=== PATIENT | male | born 1955 | race Caucasian/White ===

== ENCOUNTER 2020-07-23 08:49 | Inpatient (IN) | payer BC ==
[2020-07-23] MEDS ORDERED: Sodium Chloride 0.9% 10 ML Syringe FLUSH PRN (10:12)
[2020-07-23] MEDS ORDERED: Ondansetron 4 MG/2 ML SDV IVPUSH ONE (10:12)
[2020-07-23] MEDS ORDERED: Sodium Chloride 0.9% 500 ML IV ONE (10:12)
[2020-07-23] MEDS ORDERED: Acetaminophen 325 MG Tab PO PRN (11:47)
[2020-07-23] MEDS: Sodium Chloride 0.9% 1,000 ML IV SCH ×2 (12:15→20:15)
--- NOTE | 2020-07-23 12:16 | CR ---
DATE OF SERVICE: 07/23/2020 CLINICAL DATA: Shortness of breath AP chest: Comparison is made to a prior exam dated 29 August 2007. The patient has taken a poor inspiration. Heart size is normal. The aorta is ectatic. There is a subtle ground-glass opacity in the right mid lung and right suprahilar region. Viral pneumonia should be considered. The lungs are otherwise clear. No pneumothorax. No pleural effusions. MTDD
--- NOTE | 2020-07-23 12:45 | PCM.PN ---
- General Info Date of Service: 07/23/20 Functional Status: Reports: Pain Controlled Pain Score: 0 - Review of Systems General: Reports: No Symptoms HEENT: Reports: No Symptoms Pulmonary: Reports: No Symptoms Cardiovascular: Reports: No Symptoms Gastrointestinal: Reports: Decreased Appetite, Diarrhea, Nausea, Vomiting Genitourinary: Reports: No Symptoms Musculoskeletal: Reports: No Symptoms Skin: Reports: No Symptoms Neurological: Reports: No Symptoms Psychiatric: Reports: No Symptoms - Patient Data Vitals - Most Recent: Last Vital Signs Temp 98 F 07/23/20 09:45 Pulse 92 07/23/20 10:39 Resp 18 07/23/20 10:39 BP 109/79 07/23/20 10:39 Pulse Ox 98 07/23/20 10:39 Weight - Most Recent: 220 lb Lab Results Last 24 Hours: Laboratory Results - last 24 hr 07/23/20 07/23/20 07/23/20 Range/Units 10:12 10:12 10:12 WBC 3.6 L (4.0-11.0) K/uL RBC 5.47 (4.50-6.50) M/uL Hgb 16.2 (13.0-18.0) g/dL Hct 46.6 (40.0-54.0) % MCV 85 (76-96) fL MCH 29.6 (27.0-32.0) pg MCHC 34.8 (31.0-35.0) g/dL RDW 12.7 (11.0-16.0) % Plt Count 150 (150-400) K/uL MPV 10.7 H (6.0-10.0) fL Neut % (Auto) 75.2 H (45.0-70.0) % Lymph % (Auto) 11.3 L (20.0-40.0) % [place] % (Auto) 13.5 H (3.0-10.0) % Eos % (Auto) 0.0 L (1.0-5.0) % Baso % (Auto) 0.0 (0.0-0.5) % Neut # (Auto) 2.74 (2.00-7.50) K/uL Lymph # (Auto) 0.41 L (1.50-4.00) K/uL [place] # (Auto) 0.49 (0.20-0.80) K/uL Eos # (Auto) 0.00 L (0.04-0.40) K/uL Baso # (Auto) 0.00 L (0.02-0.10) K/uL D-Dimer, Quantitative 663 H (0-400) ng/mL Sodium 134 L (136-145) mmol/L Potassium 4.0 (3.5-5.1) mmol/L Chloride 98 (98-107) mmol/L Carbon Dioxide 25.4 (21.0-32.0) mmol/L Anion Gap 14.6 (5.0-15.0) mmol/L BUN 48 H (8-26) mg/dL Creatinine 1.64 H (0.70-1.30) mg/dL Est Cr Clr Drug Dosing 42.87 mL/min Estimated GFR (MDRD) 42 L (>60) MLS/MIN BUN/Creatinine Ratio 29.3 H (6-25) Glucose 143 H (74-100) mg/dL Lactic Acid (0.4-2.0) mmol/L Calcium 8.2 L (8.5-10.1) mg/dL Total Bilirubin 0.7 (0.0-1.0) mg/dL AST 29 (15-37) U/L ALT 36 (12-78) U/L Alkaline Phosphatase 68 (46-116) U/L Troponin I < 0.017 (0.000-0.060) ng/mL C-Reactive Protein 19.8 H (0.0-3.0) mg/L Total Protein 7.1 (6.4-8.2) g/dL Albumin 3.2 L (3.4-5.0) g/dL Globulin 3.9 (2.2-4.2) g/dL Albumin/Globulin Ratio 0.8 (0.8-2.0) 07/23/20 07/23/20 Range/Units 10:12 11:12 WBC (4.0-11.0) K/uL RBC (4.50-6.50) M/uL Hgb (13.0-18.0) g/dL Hct (40.0-54.0) % MCV (76-96) fL MCH (27.0-32.0) pg MCHC (31.0-35.0) g/dL RDW (11.0-16.0) % Plt Count (150-400) K/uL MPV (6.0-10.0) fL Neut % (Auto) (45.0-70.0) % Lymph % (Auto) (20.0-40.0) % [place] % (Auto) (3.0-10.0) % Eos % (Auto) (1.0-5.0) % Baso % (Auto) (0.0-0.5) % Neut # (Auto) (2.00-7.50) K/uL Lymph # (Auto) (1.50-4.00) K/uL [place] # (Auto) (0.20-0.80) K/uL Eos # (Auto) (0.04-0.40) K/uL Baso # (Auto) (0.02-0.10) K/uL D-Dimer, Quantitative (0-400) ng/mL Sodium (136-145) mmol/L Potassium (3.5-5.1) mmol/L Chloride (98-107) mmol/L Carbon Dioxide (21.0-32.0) mmol/L Anion Gap (5.0-15.0) mmol/L BUN (8-26) mg/dL Creatinine (0.70-1.30) mg/dL Est Cr Clr Drug Dosing mL/min Estimated GFR (MDRD) (>60) MLS/MIN BUN/Creatinine Ratio (6-25) Glucose (74-100) mg/dL Lactic Acid 2.2 H 2.0 (0.4-2.0) mmol/L Calcium (8.5-10.1) mg/dL Total Bilirubin (0.0-1.0) mg/dL AST (15-37) U/L ALT (12-78) U/L Alkaline Phosphatase (46-116) U/L Troponin I (0.000-0.060) ng/mL C-Reactive Protein (0.0-3.0) mg/L Total Protein (6.4-8.2) g/dL Albumin (3.4-5.0) g/dL Globulin (2.2-4.2) g/dL Albumin/Globulin Ratio (0.8-2.0) Med Orders - Current: Current Medications Acetaminophen (Tylenol) 650 mg PO Q4H PRN PRN Reason: analgesia/fever Heparin Sodium (Porcine) (Heparin Sodium) 5,000 units SUBCUT Q12HR ROBIN Sodium Chloride (Saline Flush) 10 ml FLUSH ASDIRECTED PRN PRN Reason: Keep Vein Open Last Admin: 07/23/20 10:16 Dose: 10 ml Documented by: Discontinued Medications Sodium Chloride (Normal Saline) 500 mls @ 500 mls/hr IV .BOLUS ONE Stop: 07/23/20 11:11 Last Admin: 07/23/20 10:15 Dose: 500 mls/hr Documented by: Ondansetron HCl (Zofran) 8 mg IVPUSH ONETIME ONE Stop: 07/23/20 10:13 Last Admin: 07/23/20 10:17 Dose: 8 mg Documented by: Sepsis Event Note - Evaluation Sepsis Screening Result: No Definite Risk - Focused Exam Vital Signs: Vital Signs Temp Pulse Resp BP Pulse Ox 07/23/20 10:39 92 18 109/79 98 07/23/20 09:45 98 F 105 H 18 140/83 98 - Problem List Review Problem List Initiated/Reviewed/Updated: Yes - My Orders Last 24 Hours: My Active Orders 07/23/20 10:12 Sodium Chloride 0.9% [Saline Flush] 10 ml FLUSH ASDIRECTED PRN Peripheral IV Insertion Adult [OM.PC] Routine 07/23/20 10:13 EKG Documentation Completion [RC] ASDIRECTED 07/23/20 Lunch Clear Liquid Diet [DIET] 07/23/20 11:47 Patient Status [ADT] Routine Oxygen Therapy [RC] PRN Up With Assistance [RC] ASDIRECTED Vital Signs [RC] Q4H Acetaminophen [TylenoL] 650 mg PO Q4H PRN 07/23/20 20:00 Heparin Sodium 5,000 units SUBCUT Q12HR - Plan Plan:: Spoke with ehospitalist Dr. Escobar, he suggests 5000units sc heparin BID. Patient is resting, nausea controlled at this time. Patient will start clear liquid diet for lunch, if tolerated with no nausea, he will start lowfat diet for supper. Continues to deny any pain, SOB, nausea at this time.
[2020-07-23] MEDS ORDERED: Ondansetron 4 MG/2 ML SDV IVPUSH PRN (15:05)
[2020-07-23] MEDS ORDERED: Heparin Sodium 5,000 Units/ML Vial ONE (19:30)
[2020-07-23] MEDS: Heparin Sodium 5,000 UNITS/0.5 ML Syringe SUBCUT SCH (19:56)
[2020-07-24] MEDS ORDERED: Heparin Sodium 5,000 Units/ML Vial ONE (07:41)
[2020-07-24] MEDS: Heparin Sodium 5,000 UNITS/0.5 ML Syringe SUBCUT SCH (08:31)
--- NOTE | 2020-07-24 11:26 | PCM.PN ---
- General Info Date of Service: 07/24/20 Functional Status: Reports: Pain Controlled, Ambulating, Urinating - Review of Systems General: Reports: Weakness, Fatigue HEENT: Reports: No Symptoms Pulmonary: Reports: No Symptoms, Cough Cardiovascular: Reports: No Symptoms, Orthopnea Gastrointestinal: Reports: Diarrhea, Nausea (nausea is resolved) Genitourinary: Reports: No Symptoms Musculoskeletal: Reports: No Symptoms Skin: Reports: No Symptoms Neurological: Reports: No Symptoms Psychiatric: Reports: No Symptoms - Patient Data Vitals - Most Recent: Last Vital Signs Temp 98.7 F 07/24/20 08:00 Pulse 103 H 07/24/20 08:00 Resp 18 07/24/20 08:00 BP 100/68 07/24/20 08:00 Pulse Ox 95 07/24/20 08:00 Weight - Most Recent: 220 lb Lab Results Last 24 Hours: Laboratory Results - last 24 hr 07/23/20 07/23/20 07/24/20 Range/Units 10:12 11:12 09:58 WBC 3.3 L (4.0-11.0) K/uL RBC 4.91 (4.50-6.50) M/uL Hgb 14.5 (13.0-18.0) g/dL Hct 43.5 (40.0-54.0) % MCV 89 (76-96) fL MCH 29.5 (27.0-32.0) pg MCHC 33.3 (31.0-35.0) g/dL RDW 13.0 (11.0-16.0) % Plt Count 151 (150-400) K/uL MPV 10.6 H (6.0-10.0) fL Neut % (Auto) 78.9 H (45.0-70.0) % Lymph % (Auto) 10.1 L (20.0-40.0) % [place] % (Auto) 11.0 H (3.0-10.0) % Eos % (Auto) 0.0 L (1.0-5.0) % Baso % (Auto) 0.0 (0.0-0.5) % Neut # (Auto) 2.57 (2.00-7.50) K/uL Lymph # (Auto) 0.33 L (1.50-4.00) K/uL [place] # (Auto) 0.36 (0.20-0.80) K/uL Eos # (Auto) 0.00 L (0.04-0.40) K/uL Baso # (Auto) 0.00 L (0.02-0.10) K/uL D-Dimer, Quantitative 663 H (0-400) ng/mL Sodium (136-145) mmol/L Potassium (3.5-5.1) mmol/L Chloride (98-107) mmol/L Carbon Dioxide (21.0-32.0) mmol/L Anion Gap (5.0-15.0) mmol/L BUN (8-26) mg/dL Creatinine (0.70-1.30) mg/dL Est Cr Clr Drug Dosing mL/min Estimated GFR (MDRD) (>60) MLS/MIN BUN/Creatinine Ratio (6-25) Glucose (74-100) mg/dL Lactic Acid 2.0 (0.4-2.0) mmol/L Calcium (8.5-10.1) mg/dL Total Bilirubin (0.0-1.0) mg/dL AST (15-37) U/L ALT (12-78) U/L Alkaline Phosphatase (46-116) U/L Total Protein (6.4-8.2) g/dL Albumin (3.4-5.0) g/dL Globulin (2.2-4.2) g/dL Albumin/Globulin Ratio (0.8-2.0) 07/24/20 Range/Units 09:58 WBC (4.0-11.0) K/uL RBC (4.50-6.50) M/uL Hgb (13.0-18.0) g/dL Hct (40.0-54.0) % MCV (76-96) fL MCH (27.0-32.0) pg MCHC (31.0-35.0) g/dL RDW (11.0-16.0) % Plt Count (150-400) K/uL MPV (6.0-10.0) fL Neut % (Auto) (45.0-70.0) % Lymph % (Auto) (20.0-40.0) % [place] % (Auto) (3.0-10.0) % Eos % (Auto) (1.0-5.0) % Baso % (Auto) (0.0-0.5) % Neut # (Auto) (2.00-7.50) K/uL Lymph # (Auto) (1.50-4.00) K/uL [place] # (Auto) (0.20-0.80) K/uL Eos # (Auto) (0.04-0.40) K/uL Baso # (Auto) (0.02-0.10) K/uL D-Dimer, Quantitative (0-400) ng/mL Sodium 139 (136-145) mmol/L Potassium 3.9 (3.5-5.1) mmol/L Chloride 103 (98-107) mmol/L Carbon Dioxide 27.0 (21.0-32.0) mmol/L Anion Gap 12.9 (5.0-15.0) mmol/L BUN 25 D (8-26) mg/dL Creatinine 1.36 H (0.70-1.30) mg/dL Est Cr Clr Drug Dosing 51.69 mL/min Estimated GFR (MDRD) 52 L (>60) MLS/MIN BUN/Creatinine Ratio 18.4 (6-25) Glucose 139 H (74-100) mg/dL Lactic Acid (0.4-2.0) mmol/L Calcium 7.7 L (8.5-10.1) mg/dL Total Bilirubin 0.6 (0.0-1.0) mg/dL AST 32 (15-37) U/L ALT 39 (12-78) U/L Alkaline Phosphatase 61 (46-116) U/L Total Protein 6.5 (6.4-8.2) g/dL Albumin 2.8 L (3.4-5.0) g/dL Globulin 3.7 (2.2-4.2) g/dL Albumin/Globulin Ratio 0.8 (0.8-2.0) Med Orders - Current: Current Medications Acetaminophen (Tylenol) 650 mg PO Q4H PRN PRN Reason: analgesia/fever Heparin Sodium (Porcine) (Heparin Sodium) 5,000 units SUBCUT Q12HR ROBIN Last Admin: 07/24/20 08:31 Dose: 5,000 units Documented by: Sodium Chloride (Normal Saline) 1,000 mls @ 125 mls/hr IV ASDIRECTED ROBIN Last Infusion: 07/24/20 03:00 Dose: 75 mls/hr Documented by: Ondansetron HCl (Zofran) 8 mg IVPUSH Q6H PRN PRN Reason: Nausea/Vomiting Last Admin: 07/23/20 17:22 Dose: 8 mg Documented by: Sodium Chloride (Saline Flush) 10 ml FLUSH ASDIRECTED PRN PRN Reason: Keep Vein Open Last Admin: 07/23/20 10:16 Dose: 10 ml Documented by: Discontinued Medications Heparin Sodium (Porcine) (Heparin Sodium) Confirm Administered Dose 5,000 units .ROUTE .STK-MED ONE Stop: 07/23/20 19:31 Last Admin: 07/23/20 19:56 Dose: Not Given Documented by: Heparin Sodium (Porcine) (Heparin Sodium) Confirm Administered Dose 5,000 units .ROUTE .STK-MED ONE Stop: 07/24/20 07:42 Last Admin: 07/24/20 08:01 Dose: Not Given Documented by: Sodium Chloride (Normal Saline) 500 mls @ 500 mls/hr IV .BOLUS ONE Stop: 07/23/20 11:11 Last Admin: 07/23/20 10:15 Dose: 500 mls/hr Documented by: Ondansetron HCl (Zofran) 8 mg IVPUSH ONETIME ONE Stop: 07/23/20 10:13 Last Admin: 07/23/20 10:17 Dose: 8 mg Documented by: - Patient Data Lab Results Last 24 hrs: Laboratory Results - last 24 hr 07/23/20 07/23/20 07/24/20 Range/Units 10:12 11:12 09:58 WBC 3.3 L (4.0-11.0) K/uL RBC 4.91 (4.50-6.50) M/uL Hgb 14.5 (13.0-18.0) g/dL Hct 43.5 (40.0-54.0) % MCV 89 (76-96) fL MCH 29.5 (27.0-32.0) pg MCHC 33.3 (31.0-35.0) g/dL RDW 13.0 (11.0-16.0) % Plt Count 151 (150-400) K/uL MPV 10.6 H (6.0-10.0) fL Neut % (Auto) 78.9 H (45.0-70.0) % Lymph % (Auto) 10.1 L (20.0-40.0) % [place] % (Auto) 11.0 H (3.0-10.0) % Eos % (Auto) 0.0 L (1.0-5.0) % Baso % (Auto) 0.0 (0.0-0.5) % Neut # (Auto) 2.57 (2.00-7.50) K/uL Lymph # (Auto) 0.33 L (1.50-4.00) K/uL [place] # (Auto) 0.36 (0.20-0.80) K/uL Eos # (Auto) 0.00 L (0.04-0.40) K/uL Baso # (Auto) 0.00 L (0.02-0.10) K/uL D-Dimer, Quantitative 663 H (0-400) ng/mL Sodium (136-145) mmol/L Potassium (3.5-5.1) mmol/L Chloride (98-107) mmol/L Carbon Dioxide (21.0-32.0) mmol/L Anion Gap (5.0-15.0) mmol/L BUN (8-26) mg/dL Creatinine (0.70-1.30) mg/dL Est Cr Clr Drug Dosing mL/min Estimated GFR (MDRD) (>60) MLS/MIN BUN/Creatinine Ratio (6-25) Glucose (74-100) mg/dL Lactic Acid 2.0 (0.4-2.0) mmol/L Calcium (8.5-10.1) mg/dL Total Bilirubin (0.0-1.0) mg/dL AST (15-37) U/L ALT (12-78) U/L Alkaline Phosphatase (46-116) U/L Total Protein (6.4-8.2) g/dL Albumin (3.4-5.0) g/dL Globulin (2.2-4.2) g/dL Albumin/Globulin Ratio (0.8-2.0) 07/24/20 Range/Units 09:58 WBC (4.0-11.0) K/uL RBC (4.50-6.50) M/uL Hgb (13.0-18.0) g/dL Hct (40.0-54.0) % MCV (76-96) fL MCH (27.0-32.0) pg MCHC (31.0-35.0) g/dL RDW (11.0-16.0) % Plt Count (150-400) K/uL MPV (6.0-10.0) fL Neut % (Auto) (45.0-70.0) % Lymph % (Auto) (20.0-40.0) % [place] % (Auto) (3.0-10.0) % Eos % (Auto) (1.0-5.0) % Baso % (Auto) (0.0-0.5) % Neut # (Auto) (2.00-7.50) K/uL Lymph # (Auto) (1.50-4.00) K/uL [place] # (Auto) (0.20-0.80) K/uL Eos # (Auto) (0.04-0.40) K/uL Baso # (Auto) (0.02-0.10) K/uL D-Dimer, Quantitative (0-400) ng/mL Sodium 139 (136-145) mmol/L Potassium 3.9 (3.5-5.1) mmol/L Chloride 103 (98-107) mmol/L Carbon Dioxide 27.0 (21.0-32.0) mmol/L Anion Gap 12.9 (5.0-15.0) mmol/L BUN 25 D (8-26) mg/dL Creatinine 1.36 H (0.70-1.30) mg/dL Est Cr Clr Drug Dosing 51.69 mL/min Estimated GFR (MDRD) 52 L (>60) MLS/MIN BUN/Creatinine Ratio 18.4 (6-25) Glucose 139 H (74-100) mg/dL Lactic Acid (0.4-2.0) mmol/L Calcium 7.7 L (8.5-10.1) mg/dL Total Bilirubin 0.6 (0.0-1.0) mg/dL AST 32 (15-37) U/L ALT 39 (12-78) U/L Alkaline Phosphatase 61 (46-116) U/L Total Protein 6.5 (6.4-8.2) g/dL Albumin 2.8 L (3.4-5.0) g/dL Globulin 3.7 (2.2-4.2) g/dL Albumin/Globulin Ratio 0.8 (0.8-2.0) Result Diagrams: 07/24/20 09:58 07/24/20 09:58 Sepsis Event Note - Evaluation Sepsis Screening Result: No Definite Risk - Focused Exam Vital Signs: Vital Signs Temp Pulse Resp BP Pulse Ox 07/24/20 08:00 98.7 F 103 H 18 100/68 95 07/24/20 04:01 87 96 07/24/20 00:00 90 18 97 - Problem List Review Problem List Initiated/Reviewed/Updated: Yes - My Orders Last 24 Hours: My Active Orders 07/23/20 11:47 Patient Status [ADT] Routine Oxygen Therapy [RC] DAILY Up With Assistance [RC] ASDIRECTED Vital Signs [RC] Q4H Acetaminophen [TylenoL] 650 mg PO Q4H PRN 07/23/20 13:00 Sodium Chloride 0.9% [Normal Saline] 1,000 ml IV ASDIRECTED 07/23/20 14:04 CULTURE MRSA SURVEY [RM] Routine 07/23/20 14:23 Isolation [COMM] Routine 07/23/20 14:24 Resuscitation Status Routine 07/23/20 15:05 Ondansetron [Zofran] 8 mg IVPUSH Q6H PRN 07/23/20 20:00 Heparin Sodium 5,000 units SUBCUT Q12HR 07/24/20 Lunch Advance Diet Instructions [DIET] - Plan Plan:: Spoke with ehospitalist Dr. Escobar, he suggests 5000units sc heparin BID. Patient is resting, nausea controlled at this time. Patient will start clear liquid diet for lunch, if tolerated with no nausea, he will start lowfat diet for supper. Continues to deny any pain, SOB, nausea at this time. 07/24 1099 Patient resting in bed, was able to tolerate a piece of toast. Continues to have diarrhea, but denies any abdominal pain, nausea, CP, SOB, fever. Will advance his diet for lunch and see if he tolerates this. Patient would like to go home to his dog, we will reassess his appropriateness for DC if he tolerates PO challenge. RA o2 95%, lungs clear and equal bilaterally, regular rate and r hythm on exam.
--- NOTE | 2020-07-24 18:42 | EDM.PDOC ---
ED HPI GENERAL MEDICAL PROBLEM - General Chief Complaint: General Stated Complaint: WEAKNESS / COVID POSITIVE Time Seen by Provider: 07/23/20 09:45 Source of Information: Reports: Patient History Limitations: Reports: No Limitations - History of Present Illness INITIAL COMMENTS - FREE TEXT/NARRATIVE: 65 year old male known COVID positive presents to ED with N/V/D and weakness. Patient was diagnosed last week and has had diarrhea since. Unable to keep food/water down. Denies any fever, cough, CP, SOB. Improves with: Reports: None Worsens with: Reports: None - Related Data Allergies Allergy/AdvReac Type Severity Reaction Status Date / Time No Known Allergies Allergy Verified 07/23/20 09:44 Home Meds: Home Meds NK [No Known Home Meds] 07/23/20 [History] Past Medical History HEENT History: Reports: Hard of Hearing Social & Family History - Tobacco Use Tobacco Use Status *Q: Never Tobacco User - Caffeine Use Caffeine Use: Reports: Coffee - Recreational Drug Use Recreational Drug Use: No ED ROS GENERAL - Review of Systems Review Of Systems: See Below Constitutional: Reports: Weakness HEENT: Reports: No Symptoms Respiratory: Reports: No Symptoms Cardiovascular: Reports: No Symptoms Endocrine: Reports: No Symptoms GI/Abdominal: Reports: Diarrhea, Nausea, Vomiting : Reports: No Symptoms Musculoskeletal: Reports: No Symptoms Skin: Reports: No Symptoms Neurological: Reports: No Symptoms Psychiatric: Reports: No Symptoms Hematologic/Lymphatic: Reports: No Symptoms ED EXAM, GI/ABD - Physical Exam Exam: See Below Exam Limited By: No Limitations General Appearance: Alert, No Apparent Distress Eyes: Bilateral: Normal Appearance Ears: Normal External Exam Nose: Normal Inspection, Normal Mucosa, No Blood Throat/Mouth: Normal Inspection, Normal Lips, Normal Gums, Normal Oropharynx, Normal Voice, No Airway Compromise Head: Atraumatic Neck: Normal Inspection, Full Range of Motion Respiratory/Chest: No Respiratory Distress, Lungs Clear, Normal Breath Sounds, No Accessory Muscle Use Cardiovascular: Normal Peripheral Pulses, No Edema, No JVD, No Murmur, Tachycardia GI/Abdominal Exam: Normal Bowel Sounds, Soft, Non-Tender Back Exam: Normal Inspection, Full Range of Motion Extremities: Normal Inspection, Normal Range of Motion, Non-Tender, No Pedal Edema, Normal Capillary Refill Neurological: Alert, Oriented, Normal Cognition, Normal Gait, No Motor/Sensory Deficits Psychiatric: Normal Affect, Normal Mood Skin Exam: Warm, Dry, Intact Lymphatic: No Adenopathy Course - Vital Signs Last Recorded V/S: Last Vital Signs Temp 98.7 F 07/24/20 08:00 Pulse 93 07/24/20 12:00 Resp 16 07/24/20 12:00 BP 105/65 07/24/20 12:00 Pulse Ox 95 07/24/20 12:00 - Orders/Labs/Meds Labs: Laboratory Tests 07/23/20 07/23/20 07/23/20 Range/Units 10:12 10:12 10:12 WBC 3.6 L (4.0-11.0) K/uL RBC 5.47 (4.50-6.50) M/uL Hgb 16.2 (13.0-18.0) g/dL Hct 46.6 (40.0-54.0) % MCV 85 (76-96) fL MCH 29.6 (27.0-32.0) pg MCHC 34.8 (31.0-35.0) g/dL RDW 12.7 (11.0-16.0) % Plt Count 150 (150-400) K/uL MPV 10.7 H (6.0-10.0) fL Neut % (Auto) 75.2 H (45.0-70.0) % Lymph % (Auto) 11.3 L (20.0-40.0) % [place] % (Auto) 13.5 H (3.0-10.0) % Eos % (Auto) 0.0 L (1.0-5.0) % Baso % (Auto) 0.0 (0.0-0.5) % Neut # (Auto) 2.74 (2.00-7.50) K/uL Lymph # (Auto) 0.41 L (1.50-4.00) K/uL [place] # (Auto) 0.49 (0.20-0.80) K/uL Eos # (Auto) 0.00 L (0.04-0.40) K/uL Baso # (Auto) 0.00 L (0.02-0.10) K/uL D-Dimer, Quantitative 663 H (0-400) ng/mL Sodium 134 L (136-145) mmol/L Potassium 4.0 (3.5-5.1) mmol/L Chloride 98 (98-107) mmol/L Carbon Dioxide 25.4 (21.0-32.0) mmol/L Anion Gap 14.6 (5.0-15.0) mmol/L BUN 48 H (8-26) mg/dL Creatinine 1.64 H (0.70-1.30) mg/dL Est Cr Clr Drug Dosing 42.87 mL/min Estimated GFR (MDRD) 42 L (>60) MLS/MIN BUN/Creatinine Ratio 29.3 H (6-25) Glucose 143 H (74-100) mg/dL Lactic Acid (0.4-2.0) mmol/L Calcium 8.2 L (8.5-10.1) mg/dL Total Bilirubin 0.7 (0.0-1.0) mg/dL AST 29 (15-37) U/L ALT 36 (12-78) U/L Alkaline Phosphatase 68 (46-116) U/L Troponin I < 0.017 (0.000-0.060) ng/mL C-Reactive Protein 19.8 H (0.0-3.0) mg/L Total Protein 7.1 (6.4-8.2) g/dL Albumin 3.2 L (3.4-5.0) g/dL Globulin 3.9 (2.2-4.2) g/dL Albumin/Globulin Ratio 0.8 (0.8-2.0) 07/23/20 07/23/20 Range/Units 10:12 11:12 WBC (4.0-11.0) K/uL RBC (4.50-6.50) M/uL Hgb (13.0-18.0) g/dL Hct (40.0-54.0) % MCV (76-96) fL MCH (27.0-32.0) pg MCHC (31.0-35.0) g/dL RDW (11.0-16.0) % Plt Count (150-400) K/uL MPV (6.0-10.0) fL Neut % (Auto) (45.0-70.0) % Lymph % (Auto) (20.0-40.0) % [place] % (Auto) (3.0-10.0) % Eos % (Auto) (1.0-5.0) % Baso % (Auto) (0.0-0.5) % Neut # (Auto) (2.00-7.50) K/uL Lymph # (Auto) (1.50-4.00) K/uL [place] # (Auto) (0.20-0.80) K/uL Eos # (Auto) (0.04-0.40) K/uL Baso # (Auto) (0.02-0.10) K/uL D-Dimer, Quantitative (0-400) ng/mL Sodium (136-145) mmol/L Potassium (3.5-5.1) mmol/L Chloride (98-107) mmol/L Carbon Dioxide (21.0-32.0) mmol/L Anion Gap (5.0-15.0) mmol/L BUN (8-26) mg/dL Creatinine (0.70-1.30) mg/dL Est Cr Clr Drug Dosing mL/min Estimated GFR (MDRD) (>60) MLS/MIN BUN/Creatinine Ratio (6-25) Glucose (74-100) mg/dL Lactic Acid 2.2 H 2.0 (0.4-2.0) mmol/L Calcium (8.5-10.1) mg/dL Total Bilirubin (0.0-1.0) mg/dL AST (15-37) U/L ALT (12-78) U/L Alkaline Phosphatase (46-116) U/L Troponin I (0.000-0.060) ng/mL C-Reactive Protein (0.0-3.0) mg/L Total Protein (6.4-8.2) g/dL Albumin (3.4-5.0) g/dL Globulin (2.2-4.2) g/dL Albumin/Globulin Ratio (0.8-2.0) Meds: Medications Discontinued Medications Generic Name Dose Route Start Last Admin Trade Name Freq PRN Reason Stop Dose Admin Acetaminophen 650 mg 07/23/20 11:47 Tylenol PO Q4H PRN analgesia/fever Heparin Sodium (Porcine) 5,000 units 07/23/20 20:00 07/24/20 08:31 Heparin Sodium SUBCUT 5,000 units Q12HR ROBIN Administration Heparin Sodium (Porcine) Confirm 07/23/20 19:30 07/23/20 19:56 Heparin Sodium Administered 07/23/20 19:31 Not Given Dose 5,000 units .ROUTE .STK-MED ONE Heparin Sodium (Porcine) Confirm 07/24/20 07:41 07/24/20 08:01 Heparin Sodium Administered 07/24/20 07:42 Not Given Dose 5,000 units .ROUTE .STK-MED ONE Sodium Chloride 500 mls @ 500 mls/hr 07/23/20 10:12 07/23/20 10:15 Normal Saline IV 07/23/20 11:11 500 mls/hr .BOLUS ONE Administration Sodium Chloride 1,000 mls @ 125 mls/hr 07/23/20 13:00 07/24/20 03:00 Normal Saline IV 75 mls/hr ASDIRECTED ROBIN Infusion Ondansetron HCl 8 mg 07/23/20 10:12 07/23/20 10:17 Zofran IVPUSH 07/23/20 10:13 8 mg ONETIME ONE Administration Ondansetron HCl 8 mg 07/23/20 15:05 07/23/20 17:22 Zofran IVPUSH 8 mg Q6H PRN Administration Nausea/Vomiting Sodium Chloride 10 ml 07/23/20 10:12 07/23/20 10:16 Saline Flush FLUSH 10 ml ASDIRECTED PRN Administration Keep Vein Open Departure - Departure Time of Disposition: 19:16 Disposition: Admitted As Inpatient 65 Clinical Impression: COVID-19 - Discharge Information Sepsis Event Note (ED) - Evaluation Sepsis Screening Result: No Definite Risk
== END 2020-07-24 14:35 | disposition left against medical advice (07) | DRG 137 ==
LOC: LB.ED 08:49 → LB.MS 11:47
PROVIDERS: ADMIT Nurse Practitioner; ATTEND Nurse Practitioner
PROC: 8E0ZXY6 Isolation (ICD-10-PCS; principal; 2020-07-23)
DX: U07.1 COVID-19 (principal); R53.1 Weakness; R19.7 Diarrhea, unspecified
CPT/HCPCS: 36415; 71045; 80053; 83605; 84484; 85025; 85379; 86140; 93005; 96374; 99285-25; A0425; A0429; J1644-GY; J2405; J7030; J7040

== ENCOUNTER 2020-07-26 00:08 | Inpatient (IN) | payer BC ==
[2020-07-26] MEDS ORDERED: Ondansetron 4 MG/2 ML SDV IVPUSH ONE (00:47)
--- NOTE | 2020-07-26 00:57 | EDM.PDOC ---
ED HPI GENERAL MEDICAL PROBLEM - General Chief Complaint: Fever Stated Complaint: feels really bad n/v chills fever Time Seen by Provider: 07/26/20 00:51 Source of Information: Reports: Patient History Limitations: Reports: No Limitations - History of Present Illness INITIAL COMMENTS - FREE TEXT/NARRATIVE: patient presented to the ER by EMS due to GI symptoms. h/o COVID +ve 10 days ago. symptoms presented as severe nausea, emesis and diarrhea. For which he was admitted to the hospital for symptoms control, but it seems that the patient has left the hospital against medical advice. Patient reports persistent low grade fever, nausea/emesis and loose stool. Also decreased PO intake. Patient repots 9-10x episodes of loose stool within 24 hrs. Location: Reports: Abdomen - Related Data Allergies Allergy/AdvReac Type Severity Reaction Status Date / Time No Known Allergies Allergy Verified 07/23/20 09:44 Home Meds: Home Meds NK [No Known Home Meds] 07/23/20 [History] Past Medical History HEENT History: Reports: Hard of Hearing Social & Family History - Caffeine Use Caffeine Use: Reports: Coffee ED ROS GENERAL - Review of Systems Review Of Systems: See Below Constitutional: Reports: Fever, Malaise, Fatigue, Decreased Appetite, Weight Loss HEENT: Reports: No Symptoms Respiratory: Reports: No Symptoms Cardiovascular: Reports: No Symptoms GI/Abdominal: Reports: Diarrhea, Decreased Appetite, Nausea, Vomiting : Reports: No Symptoms Musculoskeletal: Reports: No Symptoms Skin: Reports: No Symptoms Neurological: Reports: No Symptoms ED EXAM, GENERAL - Physical Exam Exam: See Below Exam Limited By: No Limitations General Appearance: Alert, No Apparent Distress, Lethargic Eye Exam: Bilateral Eye: PERRL Throat/Mouth: Normal Inspection Neck: Normal Inspection Respiratory/Chest: No Respiratory Distress, Lungs Clear Cardiovascular: Normal Peripheral Pulses, Regular Rate, Rhythm GI/Abdominal: Normal Bowel Sounds, Soft, Non-Tender Extremities: Normal Inspection Neurological: Alert, Oriented, No Motor/Sensory Deficits Psychiatric: Normal Affect Skin Exam: Dry Course - Vital Signs Last Recorded V/S: Last Vital Signs Temp 37.2 C 07/26/20 01:29 Pulse 84 07/26/20 01:29 Resp 18 07/26/20 01:29 BP 108/67 07/26/20 01:29 Pulse Ox 97 07/26/20 01:29 - Orders/Labs/Meds Orders: Active Orders 24 hr Category Date Time Status ESR [SEDIMENTATION RATE MANUAL] [HEME] Stat Lab 07/26/20 00:45 Ordered Sodium Chloride 0.9% [Normal Saline] 1,000 ml Med 07/26/20 01:00 Active IV ASDIRECTED Medication Orders Sodium Chloride (Normal Saline) 1,000 mls @ 333 mls/hr IV ASDIRECTED ROBIN Last Admin: 07/26/20 01:00 Dose: 333 mls/hr Documented by: YANNA Labs: Laboratory Tests 07/26/20 07/26/20 07/26/20 Range/Units 00:44 00:44 00:45 WBC 3.7 L (4.0-11.0) K/uL RBC 4.64 (4.50-6.50) M/uL Hgb 14.0 (13.0-18.0) g/dL Hct 40.7 (40.0-54.0) % MCV 88 (76-96) fL MCH 30.2 (27.0-32.0) pg MCHC 34.4 (31.0-35.0) g/dL RDW 12.8 (11.0-16.0) % Plt Count 175 (150-400) K/uL MPV 10.9 H (6.0-10.0) fL Neut % (Auto) 74.2 H (45.0-70.0) % Lymph % (Auto) 11.4 L (20.0-40.0) % [place] % (Auto) 14.1 H (3.0-10.0) % Eos % (Auto) 0.3 L (1.0-5.0) % Baso % (Auto) 0.0 (0.0-0.5) % Neut # (Auto) 2.73 (2.00-7.50) K/uL Lymph # (Auto) 0.42 L (1.50-4.00) K/uL [place] # (Auto) 0.52 (0.20-0.80) K/uL Eos # (Auto) 0.01 L (0.04-0.40) K/uL Baso # (Auto) 0.00 L (0.02-0.10) K/uL Sodium 134 L (136-145) mmol/L Potassium 4.5 (3.5-5.1) mmol/L Chloride 100 (98-107) mmol/L Carbon Dioxide 24.5 (21.0-32.0) mmol/L Anion Gap 14.0 (5.0-15.0) mmol/L BUN 19 D (8-26) mg/dL Creatinine 1.07 D (0.70-1.30) mg/dL Est Cr Clr Drug Dosing 65.70 mL/min Estimated GFR (MDRD) > 60 (>60) MLS/MIN BUN/Creatinine Ratio 17.8 (6-25) Glucose 106 H (74-100) mg/dL Calcium 7.7 L (8.5-10.1) mg/dL Magnesium 2.0 (1.8-2.4) mg/dL Total Bilirubin 1.0 D (0.0-1.0) mg/dL AST 64 H (15-37) U/L ALT 50 (12-78) U/L Alkaline Phosphatase 54 (46-116) U/L C-Reactive Protein (0.0-3.0) mg/L Total Protein 6.5 (6.4-8.2) g/dL Albumin 2.6 L (3.4-5.0) g/dL Globulin 3.9 (2.2-4.2) g/dL Albumin/Globulin Ratio 0.7 L (0.8-2.0) 07/26/20 Range/Units 00:48 WBC (4.0-11.0) K/uL RBC (4.50-6.50) M/uL Hgb (13.0-18.0) g/dL Hct (40.0-54.0) % MCV (76-96) fL MCH (27.0-32.0) pg MCHC (31.0-35.0) g/dL RDW (11.0-16.0) % Plt Count (150-400) K/uL MPV (6.0-10.0) fL Neut % (Auto) (45.0-70.0) % Lymph % (Auto) (20.0-40.0) % [place] % (Auto) (3.0-10.0) % Eos % (Auto) (1.0-5.0) % Baso % (Auto) (0.0-0.5) % Neut # (Auto) (2.00-7.50) K/uL Lymph # (Auto) (1.50-4.00) K/uL [place] # (Auto) (0.20-0.80) K/uL Eos # (Auto) (0.04-0.40) K/uL Baso # (Auto) (0.02-0.10) K/uL Sodium (136-145) mmol/L Potassium (3.5-5.1) mmol/L Chloride (98-107) mmol/L Carbon Dioxide (21.0-32.0) mmol/L Anion Gap (5.0-15.0) mmol/L BUN (8-26) mg/dL Creatinine (0.70-1.30) mg/dL Est Cr Clr Drug Dosing mL/min Estimated GFR (MDRD) (>60) MLS/MIN BUN/Creatinine Ratio (6-25) Glucose (74-100) mg/dL Calcium (8.5-10.1) mg/dL Magnesium (1.8-2.4) mg/dL Total Bilirubin (0.0-1.0) mg/dL AST (15-37) U/L ALT (12-78) U/L Alkaline Phosphatase (46-116) U/L C-Reactive Protein 44.2 H (0.0-3.0) mg/L Total Protein (6.4-8.2) g/dL Albumin (3.4-5.0) g/dL Globulin (2.2-4.2) g/dL Albumin/Globulin Ratio (0.8-2.0) Meds: Medications Generic Name Dose Route Start Last Admin Trade Name Freq PRN Reason Stop Dose Admin Sodium Chloride 1,000 mls @ 333 mls/hr 07/26/20 01:00 07/26/20 01:00 Normal Saline IV 333 mls/hr ASDIRECTED ROBIN Administration Discontinued Medications Generic Name Dose Route Start Last Admin Trade Name Freq PRN Reason Stop Dose Admin Ondansetron HCl 4 mg 07/26/20 00:47 07/26/20 01:19 Zofran IVPUSH 07/26/20 00:48 4 mg ONETIME ONE Administration - Re-Assessments/Exams Free Text/Narrative Re-Assessment/Exam: * patient was placed in isolation room due to covid +V * labs were ordered * IVF bolus was started 0.9NS * nausea was controlled with IV zofran Departure - Departure Time of Disposition: 01:53 Disposition: Admitted As Inpatient 65 Condition: Fair Clinical Impression: COVID-19, Dehydration, Diarrhea due to COVID-19 - Discharge Information *PRESCRIPTION DRUG MONITORING PROGRAM REVIEWED*: Not Applicable *COPY OF PRESCRIPTION DRUG MONITORING REPORT IN PATIENT CRISTOBAL: Not Applicable Forms: ED Department Discharge Sepsis Event Note (ED) - Focused Exam Vital Signs: Vital Signs Temp Pulse Resp BP Pulse Ox 07/26/20 01:29 37.2 C 84 18 108/67 97 07/26/20 00:50 37.1 C 16 106/62 96 - Problem List & Annotations (1) COVID-19 SNOMED Code(s): 101656458 Code(s): U07.1 - COVID-19 Status: Acute Priority: Medium (2) Dehydration SNOMED Code(s): 10462929 Code(s): E86.0 - DEHYDRATION Status: Acute Priority: Medium (3) Diarrhea due to COVID-19 SNOMED Code(s): 598155037 Code(s): U07.1 - COVID-19; A08.39 - OTHER VIRAL ENTERITIS Status: Acute Priority: Medium - Problem List Review Problem List Initiated/Reviewed/Updated: Yes - My Orders Last 24 Hours: My Active Orders 07/26/20 00:45 ESR [SEDIMENTATION RATE MANUAL] [HEME] Stat 07/26/20 01:00 Sodium Chloride 0.9% [Normal Saline] 1,000 ml IV ASDIRECTED - Assessment/Plan Last 24 Hours: My Active Orders 07/26/20 00:45 ESR [SEDIMENTATION RATE MANUAL] [HEME] Stat 07/26/20 01:00 Sodium Chloride 0.9% [Normal Saline] 1,000 ml IV ASDIRECTED Plan: - admission to the floor for IVF and nausea control - will start remdesevir IV to control GI symptoms - resume home meds - continue supportive treatment discussed with the patient the need to admit to admit for hydration - patient agreed and expressed his understanding that he will complete the course of therapy this time
[2020-07-26] MEDS ORDERED: Sodium Chloride 0.9% 1,000 ML IV SCH (01:00)
[2020-07-26] MEDS ORDERED: REMDESIVIR 200 MG in Sodium Chloride 0.9% 250 ML IV ONE (02:00)
[2020-07-26] MEDS: Sodium Chloride 0.9% 1,000 ML IV SCH ×3 (03:50→20:00)
[2020-07-26] MEDS ORDERED: Albuterol/Ipratropium 3.0-0.5 MG/3 ML Neb Soln ONE (08:14)
[2020-07-26] MEDS ORDERED: Albuterol/Ipratropium 3.0-0.5 MG/3 ML Neb Soln NEB PRN (09:20)
[2020-07-26] MEDS ORDERED: Ascorbic Acid 500 MG Tab PO ONE (13:28)
[2020-07-26] MEDS ORDERED: REMDESIVIR 100 MG in Sodium Chloride 0.9% 100 ML IV SCH (14:00)
[2020-07-26] MEDS ORDERED: Heparin Sodium 5,000 Units/ML Vial ONE (14:26)
[2020-07-26] MEDS: Heparin Sodium 5,000 UNITS/0.5 ML Syringe SUBCUT SCH ×2 (14:35→19:59)
[2020-07-26] MEDS: Dexamethasone 4 MG Tab PO SCH (14:35)
[2020-07-26] MEDS ORDERED: Calcium Carbonate 500 MG Tab.Chew PO PRN (18:38)
[2020-07-26] MEDS ORDERED: Ondansetron 4 MG Tab.DIS PO PRN (18:38)
[2020-07-26] MEDS ORDERED: Ondansetron 4 MG/2 ML SDV ONE (18:40)
[2020-07-26] MEDS: Calcium Carbonate 500 MG Tab.Chew ONE (19:13)
[2020-07-26] MEDS: Simvastatin 40 MG Tab PO SCH (19:58)
[2020-07-26] MEDS: Omeprazole 20 MG Cap.CR PO SCH (19:58)
[2020-07-27] MEDS: Sodium Chloride 0.9% 1,000 ML IV SCH ×2 (04:01→12:55)
[2020-07-27] MEDS ORDERED: Heparin Sodium 5,000 Units/ML Vial ONE ×2 (07:30→19:55)
[2020-07-27] MEDS: Heparin Sodium 5,000 UNITS/0.5 ML Syringe SUBCUT SCH ×2 (07:43→19:59)
[2020-07-27] MEDS: Dexamethasone 4 MG Tab PO SCH (07:43)
--- NOTE | 2020-07-27 08:34 | CR ---
DATE OF SERVICE: 07/26/20 CLINICAL DATA: SOB AP CHEST: Comparison is made to a prior exam dated 07/23/20. The heart size is stable. There is progressive infiltrate and consolidation in the right mid lung. There is also subtle infiltrate and consolidation in the left mid lung that was not present on the prior study. There are densities in both lung bases consistent with basilar atelectasis or infiltrate. No pneumothorax. No pleural effusions. [id number] MTDD
[2020-07-27] MEDS: Calcium Carbonate 500 MG Tab.Chew ONE (11:11)
--- NOTE | 2020-07-27 12:24 | PCM.HP.2 ---
H&P History of Present Illness - General Date of Service: 07/27/20 Admit Problem/Dx: Admission Diagnosis/Problem Admission Diagnosis/Problem Dehydration Source of Information: Patient History Limitations: Reports: No Limitations - History of Present Illness Initial Comments - Free Text/Narative: patient presented to the ER with a c/o loose stool and feeling dehydrated. was diagnosed with COVID affecting GI system last week - was admitted to the floor for hydration - but decided to leave AMA - to take care of his dog. Patient reported that he continued to have diarrhea at home q15-20 min. Lost his appetite. no taste for food. no energy and sleeping most of the times. continue to have chills and some nausea. Also reports mild cough and exertional dyspnea. Onset of Symptoms: Reports: Gradual Duration of Symptoms: Reports: Day(s): (4) - Related Data Allergies/Adverse Reactions: Allergies Allergy/AdvReac Type Severity Reaction Status Date / Time No Known Allergies Allergy Verified 07/23/20 09:44 Home Medications: Home Meds NK [No Known Home Meds] 07/23/20 [History] Past Medical History HEENT History: Reports: Hard of Hearing Gastrointestinal History: Reports: Other (See Below) Other Gastrointestinal History: Diarrhea, nausea - Infectious Disease History Other Infectious Disease History: Positive for COVID - Past Surgical History GI Surgical History: Reports: None Social & Family History - Family History Family Medical History: No Pertinent Family History - Tobacco Use Tobacco Use Status *Q: Unknown Ever Used Tobacco Second Hand Smoke Exposure: No - Caffeine Use Caffeine Use: Reports: Coffee H&P Review of Systems - Review of Systems: Review Of Systems: See Below General: Reports: Chills, Malaise, Fatigue, Decreased Appetite, Weight Loss HEENT: Reports: No Symptoms Pulmonary: Reports: Cough Cardiovascular: Reports: No Symptoms Gastrointestinal: Reports: Diarrhea Genitourinary: Reports: No Symptoms Musculoskeletal: Reports: No Symptoms Skin: Reports: No Symptoms Exam - Exam Exam: See Below - Vital Signs Vital Signs: Last Vital Signs Temp 36.3 C 07/27/20 12:00 Pulse 85 07/27/20 12:00 Resp 20 07/27/20 12:00 BP 94/65 07/27/20 12:00 Pulse Ox 97 07/27/20 12:00 Weight: 99.79 kg - Exam Quality Assessment: Supplemental Oxygen General: Alert, Oriented, Lethargic HEENT: PERRLA Lungs: Clear to Auscultation, Normal Respiratory Effort Cardiovascular: Regular Rate, Regular Rhythm GI/Abdominal Exam: Normal Bowel Sounds, Soft, Non-Tender Extremities: Normal Inspection Skin: Dry Neurological: Cranial Nerves Intact Neuro Extensive - Mental Status: Alert, Oriented x3, Normal Mood/Affect Psychiatric: Alert, Normal Affect - Patient Data Lab Results Last 24 hrs: Laboratory Results - last 24 hr 07/27/20 Range/Units 09:18 Sodium 142 (136-145) mmol/L Potassium 4.2 (3.5-5.1) mmol/L Chloride 106 (98-107) mmol/L Carbon Dioxide 25.7 (21.0-32.0) mmol/L Anion Gap 14.5 (5.0-15.0) mmol/L BUN 16 (8-26) mg/dL Creatinine 0.94 (0.70-1.30) mg/dL Est Cr Clr Drug Dosing 74.79 mL/min Estimated GFR (MDRD) > 60 (>60) MLS/MIN BUN/Creatinine Ratio 17.0 (6-25) Glucose 217 H D (74-100) mg/dL Calcium 8.1 L (8.5-10.1) mg/dL Total Bilirubin 0.6 D (0.0-1.0) mg/dL AST 43 H (15-37) U/L ALT 86 H (12-78) U/L Alkaline Phosphatase 64 (46-116) U/L C-Reactive Protein 36.5 H (0.0-3.0) mg/L Total Protein 5.8 L (6.4-8.2) g/dL Albumin 2.2 L (3.4-5.0) g/dL Globulin 3.6 (2.2-4.2) g/dL Albumin/Globulin Ratio 0.6 L (0.8-2.0) Result Diagrams: 07/27/20 09:18 07/28/20 08:15 Rocky Results Last 24 hrs: Microbiology 07/26/20 09:20 Clostridioides difficile (PCR) - Final Stool / Feces - Stool, Liquid Sepsis Event Note - Evaluation Sepsis Screening Result: No Definite Risk - Focused Exam Vital Signs: Vital Signs Temp Pulse Resp BP Pulse Ox 07/27/20 12:00 36.3 C 85 20 94/65 97 07/27/20 07:41 36.1 C 55 L 24 H 113/68 96 07/27/20 04:00 36.1 C 63 18 116/68 94 L - Problem List (1) COVID-19 SNOMED Code(s): 564919254 ICD Code: U07.1 - COVID-19 Status: Acute Priority: Medium Current Visit: No (2) Dehydration SNOMED Code(s): 80174390 ICD Code: E86.0 - DEHYDRATION Status: Acute Priority: Medium Current Visit: No (3) Diarrhea due to COVID-19 SNOMED Code(s): 246887362 ICD Code: U07.1 - COVID-19; A08.39 - OTHER VIRAL ENTERITIS Status: Acute Priority: Medium Current Visit: No (4) Pneumonia due to COVID-19 virus SNOMED Code(s): 484578580482012815 ICD Code: U07.1 - COVID-19; J12.82 - PNEUMONIA DUE TO CORONAVIRUS DISEASE 2018 Status: Acute Priority: High Current Visit: Yes (5) Acute hypoxemic respiratory failure due to COVID-19 SNOMED Code(s): 755776254 ICD Code: U07.1 - COVID-19; J96.01 - ACUTE RESPIRATORY FAILURE WITH HYPOXIA Status: Acute Priority: High Current Visit: Yes Problem List Initiated/Reviewed/Updated: Yes Orders Last 24hrs: Active Orders 24 hr Category Date Time Status Nasal Washings [Nasal Irrigation] [RC] ASDIRECTED Care 07/26/20 15:12 Active CBC WITH AUTO DIFF [HEME] Routine Lab 07/27/20 09:18 Ordered COMPREHENSIVE METABOLIC PN,CMP [CHEM] DAILY Lab 07/28/20 09:18 Ordered COMPREHENSIVE METABOLIC PN,CMP [CHEM] DAILY Lab 07/29/20 09:18 Ordered SEDIMENTATION RATE MANUAL [HEME] Routine Lab 07/27/20 09:18 Ordered Calcium Carbonate [Tums] Med 07/26/20 18:38 Active 500 mg PO Q2HR PRN Heparin Sodium Med 07/26/20 14:00 Active 5,000 units SUBCUT Q12HR Omeprazole Med 07/26/20 20:00 Active 20 mg PO BEDTIME Ondansetron [Zofran ODT] Med 07/26/20 18:38 Active 4 mg PO Q4H PRN Remdesivir 100 mg Med 07/27/20 11:05 Active Sodium Chloride 0.9% [Normal Saline] 100 ml IV Q24H Simvastatin [Zocor] Med 07/26/20 20:00 Active 40 mg PO BEDTIME dexAMETHasone Med 07/26/20 13:45 Active 6 mg PO DAILY Medication Orders Albuterol/Ipratropium (Duoneb 3.0-0.5 Mg/3 Ml) 3 ml NEB Q2H PRN PRN Reason: Dyspnea Calcium Carbonate/Glycine (Tums) 500 mg PO Q2HR PRN PRN Reason: Indigestion Last Admin: 07/26/20 19:35 Dose: 500 mg Documented by: YANNA Dexamethasone (Dexamethasone) 6 mg PO DAILY [facility] Last Admin: 07/27/20 07:43 Dose: 6 mg Documented by: Admin: 07/26/20 14:35 Dose: 6 mg Documented by: EDILBERTO Heparin Sodium (Porcine) (Heparin Sodium) 5,000 units SUBCUT Q12HR [facility] Last Admin: 07/27/20 07:43 Dose: 5,000 units Documented by: Admin: 07/26/20 19:59 Dose: 5,000 units Documented by: Admin: 07/26/20 14:35 Dose: 5,000 units Documented by: EDILBERTO Sodium Chloride (Normal Saline) 1,000 mls @ 125 mls/hr IV ASDIRECTED [facility] Last Admin: 07/27/20 04:01 Dose: 125 mls/hr Documented by: Infusion: 07/27/20 04:00 Dose: 125 mls/hr Documented by: Admin: 07/26/20 20:00 Dose: 125 mls/hr Documented by: Infusion: 07/26/20 20:00 Dose: 125 mls/hr Documented by: Admin: 07/26/20 14:32 Dose: 125 mls/hr Documented by: Infusion: 07/26/20 11:50 Dose: 125 mls/hr Documented by: Admin: 07/26/20 03:50 Dose: 125 mls/hr Documented by: YANNA Remdesivir 100 mg/ Sodium (Chloride) 100 mls @ 100 mls/hr IV Q24H [facility] Stop: 07/29/20 14:59 Omeprazole (Omeprazole) 20 mg PO BEDTIME ROBIN Last Admin: 07/26/20 19:58 Dose: 20 mg Documented by: YANNA Ondansetron HCl (Zofran Odt) 4 mg PO Q4H PRN PRN Reason: Nausea/Vomiting Simvastatin (Zocor) 40 mg PO BEDTIME ROBIN Last Admin: 07/26/20 19:58 Dose: 40 mg Documented by: YANNA Assessment/Plan Comment:: 1- COVID PNA: pneumonia, positive CXR. patient dessated to mid 80's on RA. Up to 95% on O2 and nebs. 2- COVID -GI: causing loose stool and dehydration. Will start IV bolus. 3- dehydration: 2/2 above. IVF bolus then drip. monitor UOP. 4- COVID-19 +ve: starting Remdesivir 200mg initial dose, then 100mg daily. Oral dexamethasone 6mg daily. Simvastatin, vit C and D. 5- respiratory/droplet isolation. close monitoring of vitals and O2 sat. dailt labs to check CMP and mag. CRP as well. due to critical case and involvement of more than one body system - patient will need to complete the course of Remdesivir which is 5 doses total.
[2020-07-27] MEDS: REMDESIVIR 100 MG in Sodium Chloride 0.9% 100 ML IV SCH (13:48)
[2020-07-27] MEDS ORDERED: Acetaminophen 325 MG Tab PO PRN (17:38)
[2020-07-27] MEDS: Omeprazole 20 MG Cap.CR PO SCH (19:59)
[2020-07-27] MEDS: Simvastatin 40 MG Tab PO SCH (19:59)
[2020-07-28] MEDS: Dexamethasone 4 MG Tab PO SCH (07:45)
[2020-07-28] MEDS: Heparin Sodium 5,000 UNITS/0.5 ML Syringe SUBCUT SCH ×2 (07:45→20:19)
[2020-07-28] MEDS ORDERED: Heparin Sodium 5,000 Units/ML Vial ONE ×2 (07:45→20:07)
--- NOTE | 2020-07-28 11:15 | PCM.PN ---
- General Info Date of Service: 07/28/20 Admission Dx/Problem (Free Text): Admission Diagnosis/Problem Admission Diagnosis/Problem Dehydration Subjective Update: reports improved appetite. no more diarrhea. able to wean off O2 Functional Status: Reports: Tolerating Diet, Ambulating, Urinating - Review of Systems General: Reports: No Symptoms HEENT: Reports: No Symptoms Pulmonary: Reports: No Symptoms Cardiovascular: Reports: No Symptoms Gastrointestinal: Reports: No Symptoms Genitourinary: Reports: No Symptoms Musculoskeletal: Reports: No Symptoms Skin: Reports: No Symptoms - Patient Data Vitals - Most Recent: Last Vital Signs Temp 36.7 C 07/28/20 08:00 Pulse 95 07/28/20 08:00 Resp 20 07/28/20 08:00 BP 135/73 07/28/20 08:00 Pulse Ox 95 07/28/20 08:00 Weight - Most Recent: 99.79 kg I&O - Last 24 Hours: Intake & Output 07/27/20 07/28/20 07/28/20 22:59 06:59 14:59 Intake Total 1600 240 Balance 1600 240 Lab Results Last 24 Hours: Laboratory Results - last 24 hr 07/27/20 07/28/20 Range/Units 09:18 08:15 WBC 3.4 L (4.0-11.0) K/uL RBC 4.58 (4.50-6.50) M/uL Hgb 13.5 (13.0-18.0) g/dL Hct 40.1 (40.0-54.0) % MCV 88 (76-96) fL MCH 29.5 (27.0-32.0) pg MCHC 33.7 (31.0-35.0) g/dL RDW 12.8 (11.0-16.0) % Plt Count 170 (150-400) K/uL MPV 10.2 H (6.0-10.0) fL Neut % (Auto) 85.2 H (45.0-70.0) % Lymph % (Auto) 7.7 L (20.0-40.0) % Jewell % (Auto) 6.8 (3.0-10.0) % Eos % (Auto) 0.0 L (1.0-5.0) % Baso % (Auto) 0.3 (0.0-0.5) % Neut # (Auto) 2.87 (2.00-7.50) K/uL Lymph # (Auto) 0.26 L (1.50-4.00) K/uL Jewell # (Auto) 0.23 (0.20-0.80) K/uL Eos # (Auto) 0.00 L (0.04-0.40) K/uL Baso # (Auto) 0.01 L (0.02-0.10) K/uL ESR Cancelled Sodium 143 (136-145) mmol/L Potassium 4.1 (3.5-5.1) mmol/L Chloride 108 H (98-107) mmol/L Carbon Dioxide 26.1 (21.0-32.0) mmol/L Anion Gap 13.0 (5.0-15.0) mmol/L BUN 21 D (8-26) mg/dL Creatinine 0.92 (0.70-1.30) mg/dL Est Cr Clr Drug Dosing 76.41 mL/min Estimated GFR (MDRD) > 60 (>60) MLS/MIN BUN/Creatinine Ratio 22.8 (6-25) Glucose 184 H (74-100) mg/dL Calcium 7.9 L (8.5-10.1) mg/dL Total Bilirubin 0.4 D (0.0-1.0) mg/dL AST 20 (15-37) U/L ALT 67 (12-78) U/L Alkaline Phosphatase 58 (46-116) U/L Total Protein 5.5 L (6.4-8.2) g/dL Albumin 2.2 L (3.4-5.0) g/dL Globulin 3.3 (2.2-4.2) g/dL Albumin/Globulin Ratio 0.7 L (0.8-2.0) Med Orders - Current: Current Medications Acetaminophen (Tylenol) 650 mg PO Q6H PRN PRN Reason: Pain/Fever Last Admin: 07/27/20 18:01 Dose: 650 mg Documented by: Albuterol/Ipratropium (Duoneb 3.0-0.5 Mg/3 Ml) 3 ml NEB Q2H PRN PRN Reason: Dyspnea Calcium Carbonate/Glycine (Tums) 500 mg PO Q2HR PRN PRN Reason: Indigestion Last Admin: 07/26/20 19:35 Dose: 500 mg Documented by: Dexamethasone (Dexamethasone) 6 mg PO DAILY [facility] Last Admin: 07/28/20 07:45 Dose: 6 mg Documented by: Heparin Sodium (Porcine) (Heparin Sodium) 5,000 units SUBCUT Q12HR [facility] Last Admin: 07/28/20 07:45 Dose: 5,000 units Documented by: Remdesivir 100 mg/ Sodium (Chloride) 100 mls @ 100 mls/hr IV Q24H [facility] Stop: 07/29/20 14:59 Last Admin: 07/27/20 13:48 Dose: 100 mls/hr Documented by: Omeprazole (Omeprazole) 20 mg PO BEDTIME [facility] Last Admin: 07/27/20 19:59 Dose: 20 mg Documented by: Ondansetron HCl (Zofran Odt) 4 mg PO Q4H PRN PRN Reason: Nausea/Vomiting Simvastatin (Zocor) 40 mg PO BEDTIME [facility] Last Admin: 07/27/20 19:59 Dose: 40 mg Documented by: Discontinued Medications Albuterol/Ipratropium (Duoneb 3.0-0.5 Mg/3 Ml) Confirm Administered Dose 3 ml .ROUTE .STK-MED ONE Stop: 07/26/20 08:15 Last Admin: 07/26/20 14:34 Dose: Not Given Documented by: Ascorbic Acid (Vitamin C) 1,000 mg PO ONETIME ONE Stop: 07/26/20 13:29 Last Admin: 07/26/20 14:34 Dose: 1,000 mg Documented by: Calcium Carbonate/Glycine (Tums) Confirm Administered Dose 500 mg .ROUTE .STK- MED ONE Stop: 07/26/20 18:41 Last Admin: 07/27/20 11:11 Dose: Not Given Documented by: Heparin Sodium (Porcine) (Heparin Sodium) Confirm Administered Dose 5,000 units .ROUTE .STK-MED ONE Stop: 07/26/20 14:27 Last Admin: 07/26/20 14:37 Dose: Not Given Documented by: Heparin Sodium (Porcine) (Heparin Sodium) Confirm Administered Dose 5,000 units .ROUTE .STK-MED ONE Stop: 07/27/20 07:31 Last Admin: 07/27/20 07:44 Dose: Not Given Documented by: Heparin Sodium (Porcine) (Heparin Sodium) Confirm Administered Dose 5,000 units .ROUTE .STK-MED ONE Stop: 07/27/20 19:56 Last Admin: 07/27/20 20:17 Dose: Not Given Documented by: Heparin Sodium (Porcine) (Heparin Sodium) Confirm Administered Dose 5,000 units .ROUTE .STK-MED ONE Stop: 07/28/20 07:46 Sodium Chloride (Normal Saline) 1,000 mls @ 333 mls/hr IV ASDIRECTED [facility] Last Admin: 07/26/20 01:00 Dose: 333 mls/hr Documented by: Sodium Chloride (Normal Saline) 1,000 mls @ 125 mls/hr IV ASDIRECTED [facility] Last Admin: 07/27/20 12:55 Dose: 125 mls/hr Documented by: Remdesivir 200 mg/ Sodium (Chloride) 250 mls @ 250 mls/hr IV ONETIME ONE Stop: 07/26/20 02:01 Last Admin: 07/26/20 03:50 Dose: 250 mls/hr Documented by: Remdesivir 100 mg/ Sodium (Chloride) 100 mls @ 100 mls/hr IV Q24H [facility] Stop: 07/29/20 14:59 Last Admin: 07/26/20 14:36 Dose: 100 mls/hr Documented by: Ondansetron HCl (Zofran) 4 mg IVPUSH ONETIME ONE Stop: 07/26/20 00:48 Last Admin: 07/26/20 01:19 Dose: 4 mg Documented by: Ondansetron HCl (Zofran) Confirm Administered Dose 4 mg .ROUTE .[facility] ONE Stop: 07/26/20 18:41 Last Admin: 07/26/20 19:13 Dose: 4 mg Documented by: - Exam Quality Assessment: Supplemental Oxygen General: Alert, Oriented HEENT: Pupils Equal Neck: Supple Lungs: Clear to Auscultation Cardiovascular: Regular Rate, Regular Rhythm GI/Abdominal Exam: Normal Bowel Sounds, Soft, Non-Tender Back Exam: Normal Inspection Extremities: Normal Inspection - Patient Data Lab Results Last 24 hrs: Laboratory Results - last 24 hr 07/27/20 07/28/20 Range/Units 09:18 08:15 WBC 3.4 L (4.0-11.0) K/uL RBC 4.58 (4.50-6.50) M/uL Hgb 13.5 (13.0-18.0) g/dL Hct 40.1 (40.0-54.0) % MCV 88 (76-96) fL MCH 29.5 (27.0-32.0) pg MCHC 33.7 (31.0-35.0) g/dL RDW 12.8 (11.0-16.0) % Plt Count 170 (150-400) K/uL MPV 10.2 H (6.0-10.0) fL Neut % (Auto) 85.2 H (45.0-70.0) % Lymph % (Auto) 7.7 L (20.0-40.0) % Jewell % (Auto) 6.8 (3.0-10.0) % Eos % (Auto) 0.0 L (1.0-5.0) % Baso % (Auto) 0.3 (0.0-0.5) % Neut # (Auto) 2.87 (2.00-7.50) K/uL Lymph # (Auto) 0.26 L (1.50-4.00) K/uL Jewell # (Auto) 0.23 (0.20-0.80) K/uL Eos # (Auto) 0.00 L (0.04-0.40) K/uL Baso # (Auto) 0.01 L (0.02-0.10) K/uL ESR Cancelled Sodium 143 (136-145) mmol/L Potassium 4.1 (3.5-5.1) mmol/L Chloride 108 H (98-107) mmol/L Carbon Dioxide 26.1 (21.0-32.0) mmol/L Anion Gap 13.0 (5.0-15.0) mmol/L BUN 21 D (8-26) mg/dL Creatinine 0.92 (0.70-1.30) mg/dL Est Cr Clr Drug Dosing 76.41 mL/min Estimated GFR (MDRD) > 60 (>60) MLS/MIN BUN/Creatinine Ratio 22.8 (6-25) Glucose 184 H (74-100) mg/dL Calcium 7.9 L (8.5-10.1) mg/dL Total Bilirubin 0.4 D (0.0-1.0) mg/dL AST 20 (15-37) U/L ALT 67 (12-78) U/L Alkaline Phosphatase 58 (46-116) U/L Total Protein 5.5 L (6.4-8.2) g/dL Albumin 2.2 L (3.4-5.0) g/dL Globulin 3.3 (2.2-4.2) g/dL Albumin/Globulin Ratio 0.7 L (0.8-2.0) Result Diagrams: 07/27/20 09:18 07/28/20 08:15 Sepsis Event Note - Evaluation Sepsis Screening Result: No Definite Risk - Focused Exam Vital Signs: Vital Signs Temp Pulse Resp BP Pulse Ox Pulse Ox 07/28/20 08:00 36.7 C 95 20 135/73 95 07/28/20 03:56 36.4 C 94 16 07/28/20 03:55 93 L 07/28/20 00:00 36.2 C 60 16 125/69 94 L - Problem List & Annotations (1) COVID-19 SNOMED Code(s): 245576776 Code(s): U07.1 - COVID-19 Status: Acute Priority: Medium Current Visit: No (2) Dehydration SNOMED Code(s): 68666817 Code(s): E86.0 - DEHYDRATION Status: Acute Priority: Medium Current Visit: No (3) Diarrhea due to COVID-19 SNOMED Code(s): 181265276 Code(s): U07.1 - COVID-19; A08.39 - OTHER VIRAL ENTERITIS Status: Acute Priority: Medium Current Visit: No (4) Acute hypoxemic respiratory failure due to COVID-19 SNOMED Code(s): 991584898 Code(s): U07.1 - COVID-19; J96.01 - ACUTE RESPIRATORY FAILURE WITH HYPOXIA Status: Acute Priority: High Current Visit: Yes (5) Pneumonia due to COVID-19 virus SNOMED Code(s): 947188824490326175 Code(s): U07.1 - COVID-19; J12.82 - PNEUMONIA DUE TO CORONAVIRUS DISEASE 2019 Status: Acute Priority: High Current Visit: Yes - Problem List Review Problem List Initiated/Reviewed/Updated: Yes - My Orders Last 24 Hours: My Active Orders 07/27/20 11:05 Remdesivir 100 mg Sodium Chloride 0.9% [Normal Saline] 100 ml IV Q24H 07/27/20 17:38 Acetaminophen [TylenoL] 650 mg PO Q6H PRN 07/29/20 09:18 COMPREHENSIVE METABOLIC PN,CMP [CHEM] DAILY - Plan Plan:: 1- COVID PNA with hypoxia 2/2 resp failure: positive CXR. patient dessated to mid 80's on RA. Up to 95% on O2 and nebs. 2- COVID -GI: causing loose stool and dehydration. Hydration by IV and PO. 3- dehydration: 2/2 above. will stop IVF and encourage PO intake . monitor UOP. 4- COVID-19 +ve: starting Remdesivir 200mg initial dose, then 100mg daily. Oral dexamethasone 6mg daily. Simvastatin, vit C and D. 5- respiratory/droplet isolation. 6- heparin 5,000 unit daily for DVT ppx Inpatient stay required for IV meds close monitoring of vitals and O2 sat. daily labs to check CMP, CRP and mag. due to critical case and involvement of more than one body system - patient will need to complete the course of Remdesivir which is 5 doses total.
[2020-07-28] MEDS: REMDESIVIR 100 MG in Sodium Chloride 0.9% 100 ML IV SCH (11:34)
[2020-07-28] MEDS: Simvastatin 40 MG Tab PO SCH (20:18)
[2020-07-28] MEDS: Omeprazole 20 MG Cap.CR PO SCH (20:18)
[2020-07-29] MEDS ORDERED: Heparin Sodium 5,000 Units/ML Vial ONE (07:49)
[2020-07-29] MEDS: Dexamethasone 4 MG Tab PO SCH (08:06)
[2020-07-29] MEDS: Heparin Sodium 5,000 UNITS/0.5 ML Syringe SUBCUT SCH (08:09)
[2020-07-29] MEDS: REMDESIVIR 100 MG in Sodium Chloride 0.9% 100 ML IV SCH (11:00)
--- NOTE | 2020-07-29 13:01 | PCM.DCSUM1 ---
Discharge Summary - Hospital Course Brief History: patient was admitted to the floor for treatment of COVID affecting respiratory and GI systems. Diarrhea for several days causing dehydration. COVID pneumonia causing hypoxia requiring O2 supplementations. Diagnosis: Stroke: No - Discharge Data Discharge Date: 07/29/20 Discharge Disposition: Home, Self-Care 01 Condition: Good - Referral to Home Health Primary Care Physician: PCP None - Discharge Diagnosis/Problem(s) (1) COVID-19 SNOMED Code(s): 755282541 ICD Code: U07.1 - COVID-19 Status: Acute Priority: Medium (2) Dehydration SNOMED Code(s): 47171534 ICD Code: E86.0 - DEHYDRATION Status: Acute Priority: Medium (3) Diarrhea due to COVID-19 SNOMED Code(s): 242105494 ICD Code: U07.1 - COVID-19; A08.39 - OTHER VIRAL ENTERITIS Status: Acute Priority: Medium (4) Acute hypoxemic respiratory failure due to COVID-19 SNOMED Code(s): 711874648 ICD Code: U07.1 - COVID-19; J96.01 - ACUTE RESPIRATORY FAILURE WITH HYPOXIA Status: Acute Priority: High (5) Pneumonia due to COVID-19 virus SNOMED Code(s): 442658664784021082 ICD Code: U07.1 - COVID-19; J12.82 - PNEUMONIA DUE TO CORONAVIRUS DISEASE 2019 Status: Acute Priority: High - Patient Summary/Data Hospital Course: patient was admitted to isolation room. IVF fluid was started to correct dehydration. IV remdesivir and dexamethasone PO 6mg were given on a daily basis - Patient dropped sat to 80's on RA, but improved with O2 supply. on day 2, patient started to show signs of improvement. Diarrhea resolved. Good PO intake .Also able to wean off O2 gradually until he was sating well on RA. No fever or chills anymore. Reports he feels more energetic and back to normal. - Patient Instructions Diet: Regular Diet as Tolerated Activity: As Tolerated Showering/Bathing: May Shower Other/Special Instructions: self/social isolation for 14 days. mask all the times. wash hands. - Discharge Plan *PRESCRIPTION DRUG MONITORING PROGRAM REVIEWED*: Not Applicable *COPY OF PRESCRIPTION DRUG MONITORING REPORT IN PATIENT CRISTOBAL: Not Applicable Prescriptions/Med Rec: methylPREDNISolone [Medrol Dose Pack] 4 mg PO DAILY #21 dospk Home Medications: Home Meds methylPREDNISolone [Medrol Dose Pack] 4 mg PO DAILY #21 dospk 07/29/20 [Rx] Patient Handouts: COVID-19 Forms: ED Department Discharge - Discharge Summary/Plan Comment DC Time >30 min.: Yes Discharge Summary/Plan Comment: - continue taking prednisone as prescribed - self isolation for 2 weeks - ends . - return to the ER if any concerns or recurrence of symptoms - increase fluids intake - mask when outdoor - Patient Data Vitals - Most Recent: Last Vital Signs Temp 36.4 C 07/29/20 12:11 Pulse 83 07/29/20 12:11 Resp 18 07/29/20 12:11 BP 138/84 07/29/20 12:11 Pulse Ox 93 L 07/29/20 12:11 Weight - Most Recent: 99.79 kg I&O - Last 24 hours: Intake & Output 07/28/20 07/29/20 07/29/20 22:59 06:59 14:59 Intake Total 100 Balance 100 Lab Results - Last 24 hrs: Laboratory Results - last 24 hr 07/29/20 Range/Units 09:59 Sodium 139 (136-145) mmol/L Potassium 4.3 (3.5-5.1) mmol/L Chloride 103 (98-107) mmol/L Carbon Dioxide 29.2 (21.0-32.0) mmol/L Anion Gap 11.1 (5.0-15.0) mmol/L BUN 21 (8-26) mg/dL Creatinine 1.07 (0.70-1.30) mg/dL Est Cr Clr Drug Dosing 65.70 mL/min Estimated GFR (MDRD) > 60 (>60) MLS/MIN BUN/Creatinine Ratio 19.6 (6-25) Glucose 298 H D (74-100) mg/dL Calcium 8.0 L (8.5-10.1) mg/dL Total Bilirubin 0.6 D (0.0-1.0) mg/dL AST 20 (15-37) U/L ALT 63 (12-78) U/L Alkaline Phosphatase 60 (46-116) U/L Total Protein 5.6 L (6.4-8.2) g/dL Albumin 2.4 L (3.4-5.0) g/dL Globulin 3.2 (2.2-4.2) g/dL Albumin/Globulin Ratio 0.8 (0.8-2.0) Med Orders - Current: Current Medications Acetaminophen (Tylenol) 650 mg PO Q6H PRN PRN Reason: Pain/Fever Last Admin: 07/27/20 18:01 Dose: 650 mg Documented by: Albuterol/Ipratropium (Duoneb 3.0-0.5 Mg/3 Ml) 3 ml NEB Q2H PRN PRN Reason: Dyspnea Calcium Carbonate/Glycine (Tums) 500 mg PO Q2HR PRN PRN Reason: Indigestion Last Admin: 07/26/20 19:35 Dose: 500 mg Documented by: Dexamethasone (Dexamethasone) 6 mg PO DAILY [facility] Last Admin: 07/29/20 08:06 Dose: 6 mg Documented by: Heparin Sodium (Porcine) (Heparin Sodium) 5,000 units SUBCUT Q12HR [facility] Last Admin: 07/29/20 08:09 Dose: 5,000 units Documented by: Remdesivir 100 mg/ Sodium (Chloride) 100 mls @ 100 mls/hr IV Q24H [facility] Stop: 07/29/20 14:59 Last Admin: 07/29/20 11:00 Dose: 100 mls/hr Documented by: Omeprazole (Omeprazole) 20 mg PO BEDTIME [facility] Last Admin: 07/28/20 20:18 Dose: 20 mg Documented by: Ondansetron HCl (Zofran Odt) 4 mg PO Q4H PRN PRN Reason: Nausea/Vomiting Simvastatin (Zocor) 40 mg PO BEDTIME [facility] Last Admin: 07/28/20 20:18 Dose: 40 mg Documented by: Discontinued Medications Albuterol/Ipratropium (Duoneb 3.0-0.5 Mg/3 Ml) Confirm Administered Dose 3 ml .ROUTE .STK-MED ONE Stop: 07/26/20 08:15 Last Admin: 07/26/20 14:34 Dose: Not Given Documented by: Ascorbic Acid (Vitamin C) 1,000 mg PO ONETIME ONE Stop: 07/26/20 13:29 Last Admin: 07/26/20 14:34 Dose: 1,000 mg Documented by: Calcium Carbonate/Glycine (Tums) Confirm Administered Dose 500 mg .ROUTE .STK- MED ONE Stop: 07/26/20 18:41 Last Admin: 07/27/20 11:11 Dose: Not Given Documented by: Heparin Sodium (Porcine) (Heparin Sodium) Confirm Administered Dose 5,000 units .ROUTE .[facility] ONE Stop: 07/26/20 14:27 Last Admin: 07/26/20 14:37 Dose: Not Given Documented by: Heparin Sodium (Porcine) (Heparin Sodium) Confirm Administered Dose 5,000 units .ROUTE .[facility] ONE Stop: 07/27/20 07:31 Last Admin: 07/27/20 07:44 Dose: Not Given Documented by: Heparin Sodium (Porcine) (Heparin Sodium) Confirm Administered Dose 5,000 units .ROUTE .[facility] ONE Stop: 07/27/20 19:56 Last Admin: 07/27/20 20:17 Dose: Not Given Documented by: Heparin Sodium (Porcine) (Heparin Sodium) Confirm Administered Dose 5,000 units .ROUTE .[facility] ONE Stop: 07/28/20 07:46 Last Admin: 07/28/20 11:34 Dose: Not Given Documented by: Heparin Sodium (Porcine) (Heparin Sodium) Confirm Administered Dose 5,000 units .ROUTE .[facility] ONE Stop: 07/28/20 20:08 Last Admin: 07/28/20 20:21 Dose: Not Given Documented by: Heparin Sodium (Porcine) (Heparin Sodium) Confirm Administered Dose 5,000 units .ROUTE .[facility] ONE Stop: 07/29/20 07:50 Last Admin: 07/29/20 08:04 Dose: Not Given Documented by: Sodium Chloride (Normal Saline) 1,000 mls @ 333 mls/hr IV ASDIRECTED [facility] Last Admin: 07/26/20 01:00 Dose: 333 mls/hr Documented by: Sodium Chloride (Normal Saline) 1,000 mls @ 125 mls/hr IV ASDIRECTED [facility] Last Admin: 07/27/20 12:55 Dose: 125 mls/hr Documented by: Remdesivir 200 mg/ Sodium (Chloride) 250 mls @ 250 mls/hr IV ONETIME ONE Stop: 07/26/20 02:01 Last Admin: 07/26/20 03:50 Dose: 250 mls/hr Documented by: Remdesivir 100 mg/ Sodium (Chloride) 100 mls @ 100 mls/hr IV Q24H [facility] Stop: 07/29/20 14:59 Last Admin: 07/26/20 14:36 Dose: 100 mls/hr Documented by: Ondansetron HCl (Zofran) 4 mg IVPUSH ONETIME ONE Stop: 07/26/20 00:48 Last Admin: 07/26/20 01:19 Dose: 4 mg Documented by: Ondansetron HCl (Zofran) Confirm Administered Dose 4 mg .ROUTE .STK-MED ONE Stop: 07/26/20 18:41 Last Admin: 07/26/20 19:13 Dose: 4 mg Documented by:
== END 2020-07-29 15:15 | disposition home or self-care (01) | DRG 137 ==
LOC: LB.ED 00:08 → LB.MS 01:56 → UNDOADMIN 02:00
PROVIDERS: ADMIT Surgery; ATTEND Surgery
PROC: 8E0ZXY6 Isolation (ICD-10-PCS; principal; 2020-07-26)
PROC: XW033E5 Introduction of Remdesivir Anti-infective into Peripheral Vein, Percutaneous Approach, New Technology Group 5 (ICD-10-PCS; 2020-07-26)
DX: U07.1 COVID-19 (principal); E86.0 Dehydration; A08.39 Other viral enteritis; J96.01 Acute respiratory failure with hypoxia; J12.82 Pneumonia due to coronavirus disease 2019; H91.90 Unspecified hearing loss, unspecified ear
CPT/HCPCS: 36415; 71045; 80053; 83735; 85025; 85651; 86140; 87493; A0425; A0429; A9270-GY; J1644-GY; J2405; J7030; J7050; J8540

== ENCOUNTER 2020-08-13 15:22 | Observation (INO) | payer BC ==
[2020-08-13] MEDS ORDERED: Sodium Chloride 0.9% 50 ML SDV FLUSH ONE (17:39)
[2020-08-13] MEDS ORDERED: Iopamidol 755 Mg/ML 100 ML Bottle IV SCH (17:45)
--- NOTE | 2020-08-13 19:43 | PCM.HP.2 ---
H&P History of Present Illness - General Date of Service: 08/13/20 Admit Problem/Dx: Admission Diagnosis/Problem Admission Diagnosis/Problem Shortness of breath Source of Information: Patient History Limitations: Reports: No Limitations - History of Present Illness Initial Comments - Free Text/Narative: Mr. Welch is a 65 YOM with a recent hospitalization for COVID pneumonia who came in to the clinic today for F/U. He stated to me he wanted to discuss his limitations with beginning to exercise again post COVID. The provider in the Clinic expressed she would like him admitted for concerns of cytokine storm and or PE. A bed was not available when he arrived here so I did his work up in the ED. No acute findings were noted, only normal sub acute labs that were consist ent with recent Covid infection. [facility] and Lai Vallejo both reviewed the chart and agreed the patient was able to be discharged. Lai Vallejo spoke and viewed the patient as well. Physical exam- No SOB or chest pain. No abdominal pain. No fever, N, V or D. No leg pain. Pulses equal throughout. Lungs CTA. Normal HRR. Vital were monitored every 20-30 minutes. Onset of Symptoms: Reports: Today Symptom Onset Date: 08/13/20 Duration of Symptoms: Reports: Hour(s): Location: Reports: Chest Quality: Reports: Other (Mild SOB) Improves with: Reports: None Worsens with: Reports: Movement Context: Reports: Other (Hx of COVID hospitalization 2.5 weeks ago ) - Related Data Allergies/Adverse Reactions: Allergies Allergy/AdvReac Type Severity Reaction Status Date / Time No Known Allergies Allergy Verified 07/23/20 09:44 Home Medications: Home Meds methylPREDNISolone [Medrol Dose Pack] 4 mg PO DAILY #21 dospk 07/29/20 [Rx] Past Medical History HEENT History: Reports: Hard of Hearing Gastrointestinal History: Reports: Other (See Below) Other Gastrointestinal History: Diarrhea, nausea - Infectious Disease History Other Infectious Disease History: Positive for COVID - Past Surgical History GI Surgical History: Reports: None Social & Family History - Family History Family Medical History: No Pertinent Family History - Caffeine Use Caffeine Use: Reports: Coffee H&P Review of Systems - Review of Systems: Review Of Systems: Comprehensive ROS is negative, except as noted in HPI. Pulmonary: Reports: Shortness of Breath (when attempting exercising around the yard) Exam - Exam Exam: See Below - Exam General: Alert, Oriented HEENT: PERRLA, Mucosa Moist & [place], Nares Patent Neck: Supple, Trachea Midline Lungs: Clear to Auscultation, Normal Respiratory Effort Cardiovascular: Regular Rate, Regular Rhythm GI/Abdominal Exam: Normal Bowel Sounds, Soft, Non-Tender Back Exam: Normal Inspection, Full Range of Motion Extremities: Normal Inspection, Normal Range of Motion, Non-Tender Peripheral Pulses: 2+: Brachial (L), Brachial (R) Skin: Warm, Dry, Intact Neurological: Cranial Nerves Intact, Reflexes Equal Bilateral Neuro Extensive - Mental Status: Alert, Oriented x3, Normal Mood/Affect, Normal Cognition Neuro Extensive - Motor, Sensory, Reflexes: CN II-XII Intact, Normal Gait, Normal Reflexes Psychiatric: Alert, Normal Affect, Normal Mood - Patient Data Lab Results Last 24 hrs: Laboratory Results - last 24 hr 08/13/20 08/13/20 08/13/20 Range/Units 15:26 15:26 15:30 WBC 6.0 D (4.0-11.0) K/uL RBC 4.65 (4.50-6.50) M/uL Hgb 13.9 (13.0-18.0) g/dL Hct 41.6 (40.0-54.0) % MCV 90 (76-96) fL MCH 29.9 (27.0-32.0) pg MCHC 33.4 (31.0-35.0) g/dL RDW 13.6 (11.0-16.0) % Plt Count 159 (150-400) K/uL MPV 9.1 (6.0-10.0) fL Neut % (Auto) 70.9 H (45.0-70.0) % Lymph % (Auto) 17.1 L (20.0-40.0) % [place] % (Auto) 9.1 (3.0-10.0) % Eos % (Auto) 2.2 (1.0-5.0) % Baso % (Auto) 0.7 H (0.0-0.5) % Neut # (Auto) 4.27 (2.00-7.50) K/uL Lymph # (Auto) 1.03 L (1.50-4.00) K/uL [place] # (Auto) 0.55 (0.20-0.80) K/uL Eos # (Auto) 0.13 (0.04-0.40) K/uL Baso # (Auto) 0.04 (0.02-0.10) K/uL PT (9.0-11.5) sec INR (1.0-3.5) D-Dimer, Quantitative 1220 H (0-400) ng/mL Sodium 142 (136-145) mmol/L Potassium 4.3 (3.5-5.1) mmol/L Chloride 106 (98-107) mmol/L Carbon Dioxide 27.4 (21.0-32.0) mmol/L Anion Gap 12.9 (5.0-15.0) mmol/L BUN 13 D (8-26) mg/dL Creatinine 1.08 (0.70-1.30) mg/dL Est Cr Clr Drug Dosing TNP Estimated GFR (MDRD) > 60 (>60) MLS/MIN BUN/Creatinine Ratio 12.0 (6-25) Glucose 109 H D (74-100) mg/dL Calcium 8.9 (8.5-10.1) mg/dL Magnesium (1.8-2.4) mg/dL Lactate Dehydrogenase (85-227) U/L Creatine Kinase (21-232) U/L Troponin I (0.000-0.060) ng/mL C-React Prot High Sens (0.00-3.00) mg/dL B-Natriuretic Peptide (0-125) pg/mL SARS-CoV-2 RNA (WILLIAM) (NEGATIVE) 08/13/20 08/13/20 08/13/20 Range/Units 15:30 15:30 17:33 WBC (4.0-11.0) K/uL RBC (4.50-6.50) M/uL Hgb (13.0-18.0) g/dL Hct (40.0-54.0) % MCV (76-96) fL MCH (27.0-32.0) pg MCHC (31.0-35.0) g/dL RDW (11.0-16.0) % Plt Count (150-400) K/uL MPV (6.0-10.0) fL Neut % (Auto) (45.0-70.0) % Lymph % (Auto) (20.0-40.0) % [place] % (Auto) (3.0-10.0) % Eos % (Auto) (1.0-5.0) % Baso % (Auto) (0.0-0.5) % Neut # (Auto) (2.00-7.50) K/uL Lymph # (Auto) (1.50-4.00) K/uL [place] # (Auto) (0.20-0.80) K/uL Eos # (Auto) (0.04-0.40) K/uL Baso # (Auto) (0.02-0.10) K/uL PT (9.0-11.5) sec INR (1.0-3.5) D-Dimer, Quantitative (0-400) ng/mL Sodium (136-145) mmol/L Potassium (3.5-5.1) mmol/L Chloride (98-107) mmol/L Carbon Dioxide (21.0-32.0) mmol/L Anion Gap (5.0-15.0) mmol/L BUN (8-26) mg/dL Creatinine (0.70-1.30) mg/dL Est Cr Clr Drug Dosing Estimated GFR (MDRD) (>60) MLS/MIN BUN/Creatinine Ratio (6-25) Glucose (74-100) mg/dL Calcium (8.5-10.1) mg/dL Magnesium 2.0 (1.8-2.4) mg/dL Lactate Dehydrogenase 220 (85-227) U/L Creatine Kinase 60 (21-232) U/L Troponin I < 0.017 (0.000-0.060) ng/mL C-React Prot High Sens 24.27 H (0.00-3.00) mg/dL B-Natriuretic Peptide 239 H (0-125) pg/mL SARS-CoV-2 RNA (WILLIAM) Positive H (NEGATIVE) 08/13/20 Range/Units 18:15 WBC (4.0-11.0) K/uL RBC (4.50-6.50) M/uL Hgb (13.0-18.0) g/dL Hct (40.0-54.0) % MCV (76-96) fL MCH (27.0-32.0) pg MCHC (31.0-35.0) g/dL RDW (11.0-16.0) % Plt Count (150-400) K/uL MPV (6.0-10.0) fL Neut % (Auto) (45.0-70.0) % Lymph % (Auto) (20.0-40.0) % [place] % (Auto) (3.0-10.0) % Eos % (Auto) (1.0-5.0) % Baso % (Auto) (0.0-0.5) % Neut # (Auto) (2.00-7.50) K/uL Lymph # (Auto) (1.50-4.00) K/uL [place] # (Auto) (0.20-0.80) K/uL Eos # (Auto) (0.04-0.40) K/uL Baso # (Auto) (0.02-0.10) K/uL PT 11.1 (9.0-11.5) sec INR 1.1 (1.0-3.5) D-Dimer, Quantitative (0-400) ng/mL Sodium (136-145) mmol/L Potassium (3.5-5.1) mmol/L Chloride (98-107) mmol/L Carbon Dioxide (21.0-32.0) mmol/L Anion Gap (5.0-15.0) mmol/L BUN (8-26) mg/dL Creatinine (0.70-1.30) mg/dL Est Cr Clr Drug Dosing Estimated GFR (MDRD) (>60) MLS/MIN BUN/Creatinine Ratio (6-25) Glucose (74-100) mg/dL Calcium (8.5-10.1) mg/dL Magnesium (1.8-2.4) mg/dL Lactate Dehydrogenase (85-227) U/L Creatine Kinase (21-232) U/L Troponin I (0.000-0.060) ng/mL C-React Prot High Sens (0.00-3.00) mg/dL B-Natriuretic Peptide (0-125) pg/mL SARS-CoV-2 RNA (WILLIAM) (NEGATIVE) Result Diagrams: 08/13/20 15:26 08/13/20 15:26 - Problem List (1) COVID-19 SNOMED Code(s): 316973571 ICD Code: U07.1 - COVID-19 Status: Acute Priority: Low (2) Post-viral disorder SNOMED Code(s): 910357592 ICD Code: B94.8 - SEQUELAE OF OTH INFECTIOUS AND PARASITIC DISEASES Status: Acute Priority: Medium Onset Date: ~08/13/20 Problem List Initiated/Reviewed/Updated: Yes Orders Last 24hrs: Active Orders 24 hr Category Date Time Status Admission Status [Patient Status] [ADT] Routine ADT 08/13/20 18:05 Ordered Chest 2V [CR] Routine Exams 08/13/20 Taken Chest w Cont [CT] Routine Exams 08/13/20 17:33 Taken FERRITIN, SERUM Stat Lab 08/13/20 15:30 Received PROCALCITONIN Stat Lab 08/13/20 15:30 Received Assessment/Plan Comment:: Post viral infection overexertion SOB. PLAN- Increase activity in moderation. Increase fluid intake. Return to work once strength returns. FU with PCP or ED for new or worsening symptoms. - Mortality Measure Prognosis:: Good
--- NOTE | 2020-08-13 21:28 | PCM.DCSUM1 ---
Discharge Summary - Hospital Course Free Text/Narrative:: Exercise induced SOB post COVID infection. HPI Initial Comments: Mr. Welch is a 65 YOM with a recent hospitalization for COVID pneumonia who came in to the clinic today for F/U. He stated to me he wanted to discuss his limitations with beginning to exercise again post COVID. The provider in the Clinic expressed she would like him admitted for concerns of cytokine storm and or PE. A bed was not available when he arrived here so I did his work up in the ED. No acute findings were noted, only normal sub acute labs that were consistent with recent Covid infection. [facility] and Lai Vallejo both reviewed the chart and agreed the patient was able to be discharged. Lai Vallejo spoke and viewed the patient as well. Physical exam- No SOB or chest pain. No abdominal pain. No fever, N, V or D. No leg pain. Pulses equal throughout. Lungs CTA. Normal HRR. Vital were Brief History: Recent COVID pneumonia and hospitalization. Diagnosis: Stroke: No - Discharge Data Discharge Date: 08/13/20 Discharge Disposition: Home, Self-Care 01 Condition: Good - Referral to Home Health Primary Care Physician: PCP None - Discharge Diagnosis/Problem(s) (1) COVID-19 SNOMED Code(s): 227627873 ICD Code: U07.1 - COVID-19 Status: Acute Priority: Low (2) Post-viral disorder SNOMED Code(s): 100033655 ICD Code: B94.8 - SEQUELAE OF OTH INFECTIOUS AND PARASITIC DISEASES Status: Acute Priority: Medium Onset Date: ~08/13/20 - Patient Instructions Diet: Heart Healthy Diet Activity: As Tolerated, No Strenuous Activities Activity, Other: As tolerated. - Discharge Plan *PRESCRIPTION DRUG MONITORING PROGRAM REVIEWED*: Not Applicable Home Medications: Home Meds methylPREDNISolone [Medrol Dose Pack] 4 mg PO DAILY #21 dospk 07/29/20 [Rx] Patient Handouts: COVID-19 - Discharge Summary/Plan Comment DC Time >30 min.: Yes Discharge Summary/Plan Comment: Post viral infection overexertion induced SOB. PLAN- Increase activity in moderation. Increase fluid intake. Return to work once strength returns. FU with PCP or ED for new or worsening symptoms. - Patient Data Lab Results - Last 24 hrs: Laboratory Results - last 24 hr 08/13/20 08/13/2008/13/21 Range/Units 15:26 15:26 15:30 WBC 6.0 D (4.0-11.0) K/uL RBC 4.65 (4.50-6.50) M/uL Hgb 13.9 (13.0-18.0) g/dL Hct 41.6 (40.0-54.0) % MCV 90 (76-96) fL MCH 29.9 (27.0-32.0) pg MCHC 33.4 (31.0-35.0) g/dL RDW 13.6 (11.0-16.0) % Plt Count 159 (150-400) K/uL MPV 9.1 (6.0-10.0) fL Neut % (Auto) 70.9 H (45.0-70.0) % Lymph % (Auto) 17.1 L (20.0-40.0) % [place] % (Auto) 9.1 (3.0-10.0) % Eos % (Auto) 2.2 (1.0-5.0) % Baso % (Auto) 0.7 H (0.0-0.5) % Neut # (Auto) 4.27 (2.00-7.50) K/uL Lymph # (Auto) 1.03 L (1.50-4.00) K/uL [place] # (Auto) 0.55 (0.20-0.80) K/uL Eos # (Auto) 0.13 (0.04-0.40) K/uL Baso # (Auto) 0.04 (0.02-0.10) K/uL PT (9.0-11.5) sec INR (1.0-3.5) D-Dimer, Quantitative 1220 H (0-400) ng/mL Sodium 142 (136-145) mmol/L Potassium 4.3 (3.5-5.1) mmol/L Chloride 106 (98-107) mmol/L Carbon Dioxide 27.4 (21.0-32.0) mmol/L Anion Gap 12.9 (5.0-15.0) mmol/L BUN 13 D (8-26) mg/dL Creatinine 1.08 (0.70-1.30) mg/dL Est Cr Clr Drug Dosing TNP Estimated GFR (MDRD) > 60 (>60) MLS/MIN BUN/Creatinine Ratio 12.0 (6-25) Glucose 109 H D (74-100) mg/dL Calcium 8.9 (8.5-10.1) mg/dL Magnesium (1.8-2.4) mg/dL Lactate Dehydrogenase (85-227) U/L Creatine Kinase (21-232) U/L Troponin I (0.000-0.060) ng/mL C-React Prot High Sens (0.00-3.00) mg/dL B-Natriuretic Peptide (0-125) pg/mL SARS-CoV-2 RNA (WILLIAM) (NEGATIVE) 08/13/20 08/13/20 08/13/20 Range/Units 15:30 15:30 17:33 WBC (4.0-11.0) K/uL RBC (4.50-6.50) M/uL Hgb (13.0-18.0) g/dL Hct (40.0-54.0) % MCV (76-96) fL MCH (27.0-32.0) pg MCHC (31.0-35.0) g/dL RDW (11.0-16.0) % Plt Count (150-400) K/uL MPV (6.0-10.0) fL Neut % (Auto) (45.0-70.0) % Lymph % (Auto) (20.0-40.0) % [place] % (Auto) (3.0-10.0) % Eos % (Auto) (1.0-5.0) % Baso % (Auto) (0.0-0.5) % Neut # (Auto) (2.00-7.50) K/uL Lymph # (Auto) (1.50-4.00) K/uL [place] # (Auto) (0.20-0.80) K/uL Eos # (Auto) (0.04-0.40) K/uL Baso # (Auto) (0.02-0.10) K/uL PT (9.0-11.5) sec INR (1.0-3.5) D-Dimer, Quantitative (0-400) ng/mL Sodium (136-145) mmol/L Potassium (3.5-5.1) mmol/L Chloride (98-107) mmol/L Carbon Dioxide (21.0-32.0) mmol/L Anion Gap (5.0-15.0) mmol/L BUN (8-26) mg/dL Creatinine (0.70-1.30) mg/dL Est Cr Clr Drug Dosing Estimated GFR (MDRD) (>60) MLS/MIN BUN/Creatinine Ratio (6-25) Glucose (74-100) mg/dL Calcium (8.5-10.1) mg/dL Magnesium 2.0 (1.8-2.4) mg/dL Lactate Dehydrogenase 220 (85-227) U/L Creatine Kinase 60 (21-232) U/L Troponin I < 0.017 (0.000-0.060) ng/mL C-React Prot High Sens 24.27 H (0.00-3.00) mg/dL B-Natriuretic Peptide 239 H (0-125) pg/mL SARS-CoV-2 RNA (WILLIAM) Positive H (NEGATIVE) 08/13/20 Range/Units 18:15 WBC (4.0-11.0) K/uL RBC (4.50-6.50) M/uL Hgb (13.0-18.0) g/dL Hct (40.0-54.0) % MCV (76-96) fL MCH (27.0-32.0) pg MCHC (31.0-35.0) g/dL RDW (11.0-16.0) % Plt Count (150-400) K/uL MPV (6.0-10.0) fL Neut % (Auto) (45.0-70.0) % Lymph % (Auto) (20.0-40.0) % [place] % (Auto) (3.0-10.0) % Eos % (Auto) (1.0-5.0) % Baso % (Auto) (0.0-0.5) % Neut # (Auto) (2.00-7.50) K/uL Lymph # (Auto) (1.50-4.00) K/uL [place] # (Auto) (0.20-0.80) K/uL Eos # (Auto) (0.04-0.40) K/uL Baso # (Auto) (0.02-0.10) K/uL PT 11.1 (9.0-11.5) sec INR 1.1 (1.0-3.5) D-Dimer, Quantitative (0-400) ng/mL Sodium (136-145) mmol/L Potassium (3.5-5.1) mmol/L Chloride (98-107) mmol/L Carbon Dioxide (21.0-32.0) mmol/L Anion Gap (5.0-15.0) mmol/L BUN (8-26) mg/dL Creatinine (0.70-1.30) mg/dL Est Cr Clr Drug Dosing Estimated GFR (MDRD) (>60) MLS/MIN BUN/Creatinine Ratio (6-25) Glucose (74-100) mg/dL Calcium (8.5-10.1) mg/dL Magnesium (1.8-2.4) mg/dL Lactate Dehydrogenase (85-227) U/L Creatine Kinase (21-232) U/L Troponin I (0.000-0.060) ng/mL C-React Prot High Sens (0.00-3.00) mg/dL B-Natriuretic Peptide (0-125) pg/mL SARS-CoV-2 RNA (WILLIAM) (NEGATIVE) Med Orders - Current: Current Medications Discontinued Medications Iopamidol (Iopamidol 755 Mg/Ml 100 Ml Bottle) 100 ml IV . DIRECTED ROBIN Sodium Chloride (Sodium Chloride 0.9% 50 Ml Sdv) 50 ml FLUSH ONETIME ONE Stop: 08/13/20 17:40
--- NOTE | 2020-08-14 08:25 | CR ---
DATE OF SERVICE: 08/13/20 CLINICAL DATA: Dyspnea, unspecified,Sequelae of other specified infectious and parasitic PA AND LATERAL CHEST: Comparison is made to a prior exam dated 07/26/20. The heart size is stable. The aorta is ectatic. There are ground glass opacities in both lungs, right greater than left, predominantly peripheral. There are subtle areas of consolidation bilaterally. No pneumothorax. No pleural effusions. [id number] [facility]
--- NOTE | 2020-08-14 08:30 | CT ---
DATE OF SERVICE: 08/13/20 CLINICAL DATA: R/O PE ENHANCED CHEST CT: Multislice acquisition through the chest with IV contrast was performed. No evidence of PE. No pneumothorax. No pleural effusions. No aortic aneurysm or dissection. There are emphysematous changes throughout both lungs. There are scattered reticular opacities in both lungs, predominantly peripheral with subpleural septal thickening and peripheral honeycombing. There are also small irregularities of consolidation in both lungs, predominantly peripheral. Findings may be related to infectious or inflammatory process. Idiopathic pulmonary fibrosis should be considered. The heart size is normal. There are mild coronary artery calcifications. No pericardial effusion. No hilar or mediastinal adenopathy. There is degenerative disc disease throughout the thoracic spine. There is anterior wedging of multiple mid and lower thoracic vertebra, age indeterminate. [id number] [facility]
== END 2020-08-13 19:15 | disposition home or self-care (01) ==
LOC: LB.CLINIC 15:22 → UNDOADMOB 18:07 → LB.MS 18:07 → UNDODISOB 19:25
PROVIDERS: ADMIT Registered Nurse; ATTEND Internal Medicine
DX: U07.1 COVID-19 (principal); B94.8 Sequelae of other specified infectious and parasitic diseases
CPT/HCPCS: 36415; 71046; 71260; 80048; 82550; 82728; 83615; 83735; 83880; 84145; 84484; 85025; 85379; 85610; 86141; 93005; U0002

== ENCOUNTER 2022-11-08 10:33 | Emergency (ER) | payer MEDICARE ==
[2022-11-08] MEDS: Sodium Chloride 0.9% 1,000 ML IV ONE ×2 (11:43→13:25)
[2022-11-08 11:56] LABS: BASOPHILS ABSOLUTE AUTO 0.03 K/uL (0.02-0.10); BASOPHILS PERCENT AUTO 0.2 % (0.0-0.5); EOSINOPHILS ABSOLUTE AUTO 0.01 K/uL (0.04-0.40); EOSINOPHILS PERCENT AUTO 0.1 % (1.0-5.0); HEMATOCRIT 42.4 % (40.0-54.0); HEMOGLOBIN 14.3 g/dL (13.0-18.0); LYMPHOCYTES ABSOLUTE AUTO 0.76 K/uL (1.50-4.00); LYMPHOCYTES PERCENT AUTO 4.6 % (20.0-40.0); MEAN CORPUSCULAR HEMOGLOBIN 30.2 pg (27.0-32.0); MEAN CORPUSCULAR HGB CONC 33.7 g/dL (31.0-35.0); MEAN CORPUSCULAR VOLUME 90 fL (76-96); MEAN PLATELET VOLUME 10.2 fL (6.0-10.0); MONOCYTES ABSOLUTE AUTO 1.09 K/uL (0.20-0.80); MONOCYTES PERCENT AUTO 6.5 % (3.0-10.0); NEUTROPHILS ABSOLUTE AUTO 14.79 K/uL (2.00-7.50); NEUTROPHILS PERCENT AUTO 88.6 % (45.0-70.0); PLATELET COUNT,PLT 268 K/uL (150-400); RED BLOOD CELL COUNT 4.73 M/uL (4.50-6.50); RED CELL DISTRIBUTION WIDTH 12.6 % (11.0-16.0); WHITE BLOOD CELL COUNT,WBC 16.7 K/uL (4.0-11.0)
[2022-11-08 12:04] LABS: APPEARANCE,URINE SLIGHTLY CLOUDY (CLEAR); BILIRUBIN,URINE LARGE (NEGATIVE); GLUCOSE,URINE 100 mg/dL (NEGATIVE); KETONES,URINE 15 mg/dL (NEGATIVE); LEUKOCYTE ESTERASE,URINE NEGATIVE (NEGATIVE); NITRITE,URINE NEGATIVE (NEGATIVE); OCCULT BLOOD,URINE MODERATE (NEGATIVE); PH,URINE 5.5 (5.0-8.0); PROTEIN,URINE >=300 mg/dL (NEGATIVE); UROBILINOGEN,URINE >=8.0 E.U./dL (0.2-1.0)
[2022-11-08 12:15] LABS: COLOR,URINE BROWN
[2022-11-08 12:17] LABS: EPITHELIAL CELLS,URINE OCCASIONAL /HPF; FINE GRANULAR CASTS,URINE RARE /HPF; HYALINE CASTS,URINE RARE /HPF; MUCUS,URINE MODERATE /HPF; RBC,URINE 0-5 /HPF
[2022-11-08 12:18] LABS: A/G RATIO 0.6 (0.8-2.0); ALBUMIN 2.9 g/dL (3.4-5.0); ANION GAP 12.4 mmol/L (5.0-15.0); BILIRUBIN TOTAL 5.4 mg/dL (0.0-1.0); BUN/CREATININE RATIO 17.7 (6-25); CALCIUM 9.2 mg/dL (8.5-10.1); CARBON DIOXIDE,CO2 29.4 mmol/L (21.0-32.0); CREATININE 1.47 mg/dL (0.70-1.30); EST CRCL DRUG DOSING (CG) 66.34 mL/min; POTASSIUM,K 3.8 mmol/L (3.5-5.1); PROTEIN TOTAL,TP 8.1 g/dL (6.4-8.2)
[2022-11-08] MEDS ORDERED: Pantoprazole 40 MG Vial IVPUSH ONE (12:30)
[2022-11-08] MEDS ORDERED: Pantoprazole 40 MG Vial ONE (12:33)
[2022-11-08] MEDS ORDERED: cefTRIAXone 2 GM in Sodium Chloride 0.9% 100 ML IV ONE (12:36)
[2022-11-08] MEDS ORDERED: cefTRIAXone 2 GM Vial ONE (12:43)
[2022-11-08] MEDS ORDERED: HYDROmorphone 2 MG/ML Syringe IVPUSH ONE (12:45)
[2022-11-08] MEDS ORDERED: metroNIDAZOLE/Normal Saline 500 MG in Premix Bag 1 BAG IV ONE (12:45)
[2022-11-08] MEDS ORDERED: Sodium Chloride 0.9% 500 ML IV ONE (12:53)
[2022-11-08] MEDS ORDERED: metroNIDAZOLE 500 MG Tab ONE (13:56)
[2022-11-08] MEDS ORDERED: Ondansetron 4 MG/2 ML SDV IVPUSH ONE (16:23)
[2022-11-08] MEDS ORDERED: HYDROmorphone 2 MG/ML Syringe ONE (16:24)
[2022-11-08] MEDS ORDERED: Ondansetron 4 MG/2 ML SDV ONE (16:24)
== END 2022-11-08 17:15 ==
LOC: LB.ED 10:33
DX: K81.0 Acute cholecystitis (principal)
CPT/HCPCS: 36415; 74176; 80053; 81001; 83690; 83735; 85025; 96361; 96365; 96367; 96375; 99285; C9113; J0696; J1170; J2405; J3490; J7030